=== PATIENT | male | born 1955 | race African-American/Black ===

== ENCOUNTER 2020-08-26 08:12 | Emergency (ER) | payer OTHER ==
[2020-08-26 08:21] VITALS: BP 137/81; PULSE 103; TEMP 98.4; BMI 22.4
--- NOTE | 2020-08-26 09:03 | PDOC ---
History of Present Illness - General Chief Complaint: Shortness of Breath Stated Complaint: ASTHMA - History of Present Illness Initial Comments: 65 YOM h/o COPD presents with SOB since two days. Patient reports SOB with ambulating. Was dxd with pnemonia in february, stayed in hospital for 2 weeks, treated and dcd. Has been fine since onset of current sx. Denies CP, fever, chills, n/v/d, recent sick contacts or travel. Constitutional: No Weight Change, No Fever, No Chills, No Night Sweats, No Fatigue, No Malaise ENT/Mouth: No Hearing Changes, No Ear Pain, No Nasal Congestion, No Sinus Pain, No Hoarseness, No sore throat, No Rhinorrhea, No Swallowing Difficulty Eyes: No Eye Pain, No Swelling, No Redness, No Foreign Body, No Discharge, No Vision Changes Cardiovascular: No Chest Pain, + SOB, No PND, No Dyspnea on Exertion, No Orthopnea, No Claudication, No Edema, No Palpitations Respiratory: No Cough, No Sputum, No Wheezing, No Smoke Exposure, No Dyspnea Gastrointestinal: No Nausea, No Vomiting, No Diarrhea, No Constipation, No Pain, No Heartburn, No Anorexia, No Dysphagia, No Hematochezia, No Melena, No Flatulence, No Jaundice Genitourinary: No Dysmenorrhea, No DUB, No Dyspareunia, No Dysuria, No Urinary Frequency, No Hematuria, No Urinary Incontinence, No Urgency, No Flank Pain, No Urinary Flow Changes, No Hesitancy Musculoskeletal: No Arthralgias, No Myalgias, No Joint Swelling, No Joint Stiffness, No Back Pain, No Neck Pain, No Injury History Skin: No Skin Lesions, No Pruritis, No Hair Changes, No Breast/Skin Changes, No Nipple Discharge Neuro: No Weakness, No Numbness, No Paresthesias, No Loss of Consciousness, No Syncope, No Dizziness, No Headache, No Coordination Changes, No Recent Falls Psych: No Anxiety/Panic, No Depression, No Insomnia, No Personality Changes, No Delusions, No Rumination, No SI/HI/AH/VH, No Social Issues, No Memory Changes, No Violence/Abuse Hx., No Eating Concerns Heme/Lymph: No Bruising, No Bleeding, No Transfusions History, No Lymphadenopathy Endocrine: No Polyuria, No Polydipsia, No Temperature Intolerance Past History - Medical History Allergies/Adverse Reactions: Allergies Allergy/AdvReac Type Severity Reaction Status Date / Time No Known Allergies Allergy Verified 08/26/20 08:15 Home Medications: Ambulatory Orders Azithromycin [Zithromax Tri-Alex (3 DAYS) -] 500 mg PO DAILY #3 tablet 08/26/20 predniSONE [Deltasone -] 40 mg PO UTDICT 4 Days #4 tablet 08/26/20 Asthma: Yes COPD: No HTN: Yes - Psycho-Social/Smoking History Smoking History: Current every day smoker Number of Cigarettes Smoked Daily: 4 Information on smoking cessation initiated: Yes - Substance Abuse Hx (Audit-C & DAST Scrn) How often the patient has a drink containing alcohol: Never Score: In Men: 4 or > Positive; In Women: 3 or > Positive: 0 Screen Result (Pos requires Nsg. Audit-10AR): Negative In the last yr the pt used illegal drug/Rx for NonMed reason: No Score: Yes response is considered Positive: 0 Screen Result (Positive result requires Nsg. DAST-10): Negative *Physical Exam - Vital Signs Last Vital Signs Temp Pulse Resp BP Pulse Ox 98.4 F 103 H 24 H 137/81 100 08/26/20 08:15 08/26/20 08:15 08/26/20 08:15 08/26/20 08:15 08/26/20 08:15 - Physical Exam General Appearance: Yes: Nourished, Appropriately Dressed HEENT: positive: EOMI, CHRISTINE, Normal ENT Inspection, Normal Voice, Symmetrical, TMs Normal, Pharynx Normal Neck: positive: Trachea midline, Normal Thyroid Respiratory/Chest: positive: Wheezing Cardiovascular: positive: Regular Rhythm, Regular Rate, S1, S2, Tachycardia Gastrointestinal/Abdominal: positive: Normal Bowel Sounds, Flat, Soft ED Treatment Course - LABORATORY CBC & Chemistry Diagram: 08/26/20 09:45 08/26/20 09:45 Medical Decision Making - Medical Decision Making 65 YOM h/o copd with SOB - vitals wnl - exam + for wheeze - cbc, cmp, cxr, ekg, solumedrol, dunoneb reassess: labs and imaging unremarkable ekg shows normal sinus rythm and rate patient feeling better after duoneb, will dc with rx for zpack and prednisone 08/26/20 11:23 Discharge - Discharge Information Problems reviewed: Yes Clinical Impression/Diagnosis: COPD (chronic obstructive pulmonary disease) Condition: Good Disposition: HOME - Admission No - Additional Discharge Information Prescriptions: predniSONE [Deltasone -] 40 mg PO UTDICT 4 Days #4 tablet Azithromycin [Zithromax Tri-Alex (3 DAYS) -] 500 mg PO DAILY #3 tablet - Follow up/Referral Referrals: Franc Andrew MD [Primary Care Provider] - - Patient Discharge Instructions Patient Printed Discharge Instructions: Chronic Obstructive Pulmonary Disease Additional Instructions: You were seen in the ER for shortness of breath and trouble breathing. You received a breathing treatment, steroids, labs and imaging. Your labs and imaging were unremarkable, you reported feeling better after receiving medications. You were considered medically stable and safe to return home. Upon leaving the ER please sisal picker your medications which include prednisone and azithromycin from [facility] which is on the same floor as the emergency department. When you return home try to avoid smoking, strenuous activity, cold weather or air. Take your home medications as prescribed. Please follow up with your primary care provider regarding your visit to the emergency department. If you experience worsening shortness of breath, chest pain, fever, chills, vomiting, change in mental status please return to the ER immediately. - Post Discharge Activity
[2020-08-26] MEDS ORDERED: methylPREDNISolone NA SUCC 125 MG/2 ML VIAL IVPUSH ONE (09:05)
[2020-08-26] MEDS ORDERED: methylPREDNISolone NA SUCC 125 MG/2 ML VIAL ONE (09:13)
[2020-08-26] MEDS ORDERED: ALBUTEROL SO4 2.5/IPRATROPIUM 0.5 INH SOL 3 ML VIAL.NEB. NEB ONE ×3 (09:18→10:53)
[2020-08-26 10:02] LABS: BASO % 0.5 % (0-2.0); EOS % 13.3 % (0-4.5); HEMATOCRIT 41.5 % (35.4-49); HEMOGLOBIN 13.5 GM/dL (11.7-16.9); LYMPH % 20.5 % (8-40); MCH 29.2 pg (25.7-33.7); MCHC 32.5 g/dl (32.0-35.9); MEAN CELL VOLUME 89.9 fl (80-96); MEAN PLT VOLUME 7.8 fl (7.5-11.1); MONO % 7.4 % (3.8-10.2); NEUT % 58.3 % (42.8-82.8); PLATELET COUNT 214 K/MM3 (134-434); RBC 4.62 M/mm3 (4.00-5.60); RDW 14.9 % (11.9-15.9); WHITE BLOOD COUNT 4.5 K/mm3 (4.0-10.0)
[2020-08-26 10:12] LABS: INR 1.06 (0.83-1.09); PROTHROMBIN TIME (PATIENT) 12.5 SEC (9.7-13.0)
[2020-08-26 10:16] LABS: ACTIVATED PTT 30.3 SECONDS (25.2-36.5)
[2020-08-26 10:33] LABS: ALBUMIN 3.7 g/dl (3.4-5.0); ALK PHOS 80 U/L (45-117); ANION GAP 5 MMOL/L (8-16); BILIRUBIN,TOTAL 0.7 mg/dL (0.2-1); BLOOD UREA NITROGEN 10.8 mg/dL (7-18); CALCIUM 8.9 mg/dL (8.5-10.1); CHLORIDE 102 mmol/L (98-107); CO2 31 mmol/L (21-32); CREATININE 0.9 mg/dL (0.55-1.3); GLUCOSE,RANDOM 98 mg/dL (74-106); POTASSIUM 3.5 mmol/L (3.5-5.1); SGOT/AST 11 U/L (15-37); SGPT/ALT 14 U/L (13-61); SODIUM 139 mmol/L (136-145); TOT PROT 7.2 g/dl (6.4-8.2)
--- NOTE | 2020-08-26 11:17 | PDOC ---
Documentation entered by Austin Briggs SCRIBE, acting as scribe for Gibran Bhatt MD. Gibran Bhatt MD: This documentation has been prepared by the anabelibeChester Alexis, SCRIBE, under my direction and personally reviewed by me in its entirety. I confirm that the documentation accurately reflects all work, treatment, procedures, and medical decision making performed by me. Attending Attestation - Resident Resident Name: ErvinKirk - ED Attending Attestation I have performed the following: I have examined & evaluated the patient, The case was reviewed & discussed with the resident, I agree w/resident's findings & plan, Exceptions are as noted - HPI HPI: 08/26/20 09:54 The patient is a 65 year old male with a significant past medical history of asthma, COPD, HTN who presents to the emergency department for evaluation of shortness of breath that began two days ago. The patient reports dyspnea on exertion and wheezing. The patient was last admitted with pneumonia in February. He endorses his niece is currently sick. Denies travel. The patient denies chest/abdominal/back pain, cough, fever, chills, nausea, vomiting, and/or any GI symptoms. Denies any symptoms. Denies any other symptoms. Allergies: NKA Social Hx: The patient reports he currently smokes 4 cigarettes per day. Denies alcohol consumption or illicit drug use. - Physicial Exam PE: 08/26/20 09:54 Vitals: Triage vital signs reviewed General Appearance: No acute distress, well nourished, well developed Head: Atraumatic Cardiac: Regular rate and rhythm, no murmurs, no rubs, no gallops Lungs: Clear to auscultation bilateral, good air movement bilaterally Abdomen: Soft, nondistended, normal bowel sounds, nontender to palpation Extremities: Full range of motion to all extremities, no cyanosis, clubbing, or edema Skin: Warm and dry, no rashes or lesions, no rash, no petechiae - Medical Decision Making 08/26/20 11:17 65 years old with past medical history significant for COPD presents the ED with COPD exacerbation. Upon my examination patient had already received 2 duo nebs and feels much better no wheezing noted at time of examination EKG demonstrates normal sinus rhythm no ST elevations no T wave inversions We will discharge home with short course of steroids azithromycin and PCP follow-up Findings, the need for follow-up, strict return instructions discussed with patient. 08/26/20 15:46 Prior to receiving discharge paper patient had left ED several attempts to contact patient on phone Bridger GUPTA called as patient may have IV in Discharge - Discharge Information Problems reviewed: Yes Clinical Impression/Diagnosis: COPD (chronic obstructive pulmonary disease) Qualifiers: COPD type: unspecified COPD Qualified Code(s): J44.9 - Chronic obstructive pulmonary disease, unspecified Condition: Good Disposition: HOME - Additional Discharge Information Prescriptions: predniSONE [Deltasone -] 40 mg PO UTDICT 4 Days #4 tablet Azithromycin [Zithromax Tri-Alex (3 DAYS) -] 500 mg PO DAILY #3 tablet - Follow up/Referral Referrals: Franc Andrew MD [Primary Care Provider] - - Patient Discharge Instructions Patient Printed Discharge Instructions: Chronic Obstructive Pulmonary Disease Additional Instructions: You were seen in the ER for shortness of breath and trouble breathing. You received a breathing treatment, steroids, labs and imaging. Your labs and imaging were unremarkable, you reported feeling better after receiving medications. You were considered medically stable and safe to return home. Upon leaving the ER please cloth picker your medications which include prednisone and azithromycin from [facility] which is on the same floor as the emergency department. When you return home try to avoid smoking, strenuous activity, cold weather or air. Take your home medications as prescribed. Please follow up with your primary care provider regarding your visit to the emergency department. If you experience worsening shortness of breath, chest pain, fever, chills, vomiting, change in mental status please return to the ER immediately. - Post Discharge Activity
--- NOTE | 2020-08-26 17:00 | EKG ---
Test Reason : Blood Pressure : / mmHG Vent. Rate : 090 BPM Atrial Rate : 090 BPM P-R Int : 148 ms QRS Dur : 080 ms QT Int : 362 ms P-R-T Axes : 078 062 069 degrees QTc Int : 442 ms NORMAL SINUS RHYTHM POSSIBLE LEFT ATRIAL ENLARGEMENT BORDERLINE ECG NO PREVIOUS ECGS AVAILABLE Confirmed by ADELINA SKINNER, BETHANY ([id number]) on 08/26/2020 4:59:51 PM Referred By: Confirmed By:BETHANY SAHU MD
== END 2020-08-26 14:29 | disposition left against medical advice (07) ==
LOC: JER 08:12
PROC: 3E0F7GC Introduction of Other Therapeutic Substance into Respiratory Tract, Via Natural or Artificial Opening (ICD-10-PCS; principal; 2020-08-26)
PROC: 3E033GC Introduction of Other Therapeutic Substance into Peripheral Vein, Percutaneous Approach (ICD-10-PCS; 2020-08-26)
DX: J44.9 Chronic obstructive pulmonary disease, unspecified (principal)
CPT/HCPCS: 36415; 71046-TC-FY; 80053; 82550; 82553; 83880; 84484; 85025; 85610; 85730; 93005; 93010; 99285-25

== ENCOUNTER 2023-05-10 16:02 | Inpatient (IN) | payer OTHER ==
[2023-05-10 16:19] VITALS: BMI 20.5
[2023-05-10] MEDS ORDERED: MAGNESIUM SULF 50% (8.12 MEQ/2 ML-1 GM VIAL) IVPB ONE (16:20)
[2023-05-10] MEDS ORDERED: ALBUTEROL SO4 2.5/IPRATROPIUM 0.5 INH SOL 3 ML VIAL.NEB. NEB ONE ×3 (16:40→20:46)
[2023-05-10] MEDS ORDERED: CEFTRIAXONE 1,000 MG in DEXTROSE 5%-WATER - 50 ML IVPB ONE (16:41)
[2023-05-10] MEDS ORDERED: CEFTRIAXONE 1 GM/50 ML BAG ONE (16:54)
[2023-05-10] MEDS ORDERED: MAGNESIUM SULFATE IN WATER 2 GM/50 ML IVPB IVPB ONE (16:55)
[2023-05-10 16:56] LABS: VENOUS BASE EXCESS 7.3 mmol/L (-2-2); VENOUS O2 SATURATION 97.1 % (70-80); VENOUS PCO2 47.3 mmHg (38-52); VENOUS PH 7.455 (7.310-7.410)
[2023-05-10] MEDS ORDERED: NALOXONE HCL 0.4 MG/ML VIAL IVPUSH ONE (16:58)
[2023-05-10 16:59] LABS: BASO % 0.4 % (0-2.0); EOS % 2.9 % (0-4.5); HEMATOCRIT 44.9 % (35.4-49); HEMOGLOBIN 14.6 GM/dL (11.7-16.9); LYMPH % 10.4 % (8-40); MCH 30.5 pg (25.7-33.7); MCHC 32.5 g/dl (32.0-35.9); MEAN PLT VOLUME 7.6 fl (7.5-11.1); NEUT % 79.3 % (42.8-82.8); PLATELET COUNT 177 10^3/uL (134-434); RBC 4.78 M/mm3 (4.00-5.60); RDW 16.7 % (11.9-15.9); WHITE BLOOD COUNT 4.6 K/mm3 (4.0-10.0)
[2023-05-10] MEDS ORDERED: NALOXONE HCL 0.4 MG/ML VIAL ONE (16:59)
[2023-05-10 17:21] LABS: POTASSIUM 3.4 mmol/L (3.5-5.1)
[2023-05-10 17:23] LABS: ALBUMIN 3.7 g/dl (3.4-5.0); CALCIUM 9.1 mg/dL (8.5-10.1)
[2023-05-10 17:24] LABS: BLOOD UREA NITROGEN 13.8 mg/dL (7-18)
[2023-05-10 17:26] LABS: CREATININE 0.7 mg/dL (0.55-1.3)
[2023-05-10 17:28] LABS: BILIRUBIN,TOTAL 0.9 mg/dL (0.2-1); TOT PROT 7.1 g/dl (6.4-8.2)
[2023-05-10] MEDS ORDERED: ALBUTEROL SULFATE 0.021% (0.63 MG/3 ML) VIAL.NEB NEB ONE (18:42)
[2023-05-10] MEDS ORDERED: ALBUTEROL SO4 0.083% IH SOL 2.5 MG/3 ML VIAL.NEB. NEB ONE (18:44)
[2023-05-10] MEDS: ALBUTEROL SO4 2.5/IPRATROPIUM 0.5 INH SOL 3 ML VIAL.NEB. NEB SCH (20:30)
[2023-05-10] MEDS: BUDESONIDE/FORMETEROL FUMARATE 160/4.5 mcg INHALER IH SCH (23:29)
[2023-05-10] MEDS: HEPARIN NA (PORCINE) 5,000 UNITS/ML 1ML VIAL SQ SCH (23:29)
[2023-05-11] MEDS: ALBUTEROL SO4 2.5/IPRATROPIUM 0.5 INH SOL 3 ML VIAL.NEB. NEB SCH ×7 (00:23→23:03)
[2023-05-11] MEDS: methylPREDNISolone NA SUCC 40 MG/1 ML VIAL IVPUSH SCH ×3 (01:12→18:07)
[2023-05-11 07:42] LABS: BASO % 0.1 % (0-2.0); HEMATOCRIT 42.9 % (35.4-49); LYMPH % 7.7 % (8-40); MCH 31.4 pg (25.7-33.7); MCHC 32.7 g/dl (32.0-35.9); MEAN CELL VOLUME 96.1 fl (80-96); MEAN PLT VOLUME 7.4 fl (7.5-11.1); MONO % 2.8 % (3.8-10.2); NEUT % 89.4 % (42.8-82.8); PLATELET COUNT 159 10^3/uL (134-434); RBC 4.46 M/mm3 (4.00-5.60); RDW 16.1 % (11.9-15.9); WHITE BLOOD COUNT 3.1 K/mm3 (4.0-10.0)
[2023-05-11 08:01] LABS: POTASSIUM 4.9 mmol/L (3.5-5.1)
[2023-05-11 08:06] LABS: BLOOD UREA NITROGEN 14.8 mg/dL (7-18)
[2023-05-11 08:10] LABS: CREATININE 0.7 mg/dL (0.55-1.3)
[2023-05-11] MEDS: HEPARIN NA (PORCINE) 5,000 UNITS/ML 1ML VIAL SQ SCH ×2 (09:52→23:07)
[2023-05-11] MEDS: amLODIPine BESYLATE 10 MG TABLET (FP) PO SCH (09:52)
[2023-05-11] MEDS: LOSARTAN 50MG/HCTZ 12.5MG 1 TAB PO SCH (09:55)
[2023-05-11] MEDS ORDERED: REMDESIVIR 200 MG in SODIUM CHLORIDE 250 ML IVPB ONE (12:00)
[2023-05-11] MEDS: BUDESONIDE/FORMETEROL FUMARATE 160/4.5 mcg INHALER IH SCH ×2 (14:17→23:00)
[2023-05-12] MEDS: methylPREDNISolone NA SUCC 40 MG/1 ML VIAL IVPUSH SCH ×3 (01:34→17:30)
[2023-05-12] MEDS: ALBUTEROL SO4 2.5/IPRATROPIUM 0.5 INH SOL 3 ML VIAL.NEB. NEB SCH ×6 (04:59→23:01)
[2023-05-12] MEDS: HEPARIN NA (PORCINE) 5,000 UNITS/ML 1ML VIAL SQ SCH ×3 (05:51→22:16)
[2023-05-12 09:15] LABS: HEMATOCRIT 45.3 % (35.4-49); HEMOGLOBIN 14.8 GM/dL (11.7-16.9); LYMPH % 7.1 % (8-40); MCH 30.6 pg (25.7-33.7); MCHC 32.6 g/dl (32.0-35.9); MEAN CELL VOLUME 93.7 fl (80-96); MEAN PLT VOLUME 7.9 fl (7.5-11.1); MONO % 4.5 % (3.8-10.2); NEUT % 88.4 % (42.8-82.8); PLATELET COUNT 162 10^3/uL (134-434); RBC 4.83 M/mm3 (4.00-5.60); RDW 16.1 % (11.9-15.9); WHITE BLOOD COUNT 4.4 K/mm3 (4.0-10.0)
[2023-05-12 09:19] LABS: POTASSIUM 4.2 mmol/L (3.5-5.1)
[2023-05-12 09:22] LABS: ALBUMIN 3.4 g/dl (3.4-5.0); BLOOD UREA NITROGEN 17.5 mg/dL (7-18)
[2023-05-12 09:23] LABS: MAGNESIUM 2.4 mg/dL (1.8-2.4)
[2023-05-12 09:25] LABS: CREATININE 0.8 mg/dL (0.55-1.3); PHOSPHOROUS 3.5 mg/dL (2.5-4.9)
[2023-05-12 09:27] LABS: BILIRUBIN,TOTAL 0.6 mg/dL (0.2-1); TOT PROT 6.6 g/dl (6.4-8.2)
[2023-05-12] MEDS: amLODIPine BESYLATE 10 MG TABLET (FP) PO SCH (09:29)
[2023-05-12] MEDS: LOSARTAN 50MG/HCTZ 12.5MG 1 TAB PO SCH (09:30)
[2023-05-12] MEDS: BUDESONIDE/FORMETEROL FUMARATE 160/4.5 mcg INHALER IH SCH ×2 (10:49→22:16)
[2023-05-12] MEDS: PANTOPRAZOLE 40 MG TABLET PO SCH (18:32)
[2023-05-12] MEDS ORDERED: methaDONE HCL 10 MG TABLET PO ONE ×2 (19:00→22:00)
[2023-05-13] MEDS: methylPREDNISolone NA SUCC 40 MG/1 ML VIAL IVPUSH SCH ×3 (01:11→17:25)
[2023-05-13] MEDS: ALBUTEROL SO4 2.5/IPRATROPIUM 0.5 INH SOL 3 ML VIAL.NEB. NEB SCH ×5 (04:45→20:20)
[2023-05-13] MEDS: HEPARIN NA (PORCINE) 5,000 UNITS/ML 1ML VIAL SQ SCH ×3 (05:21→22:34)
[2023-05-13 07:11] LABS: HEMATOCRIT 45.5 % (35.4-49); HEMOGLOBIN 14.5 GM/dL (11.7-16.9); MCH 30.2 pg (25.7-33.7); MCHC 31.8 g/dl (32.0-35.9); MEAN CELL VOLUME 95.2 fl (80-96); MEAN PLT VOLUME 7.9 fl (7.5-11.1); PLATELET COUNT 161 10^3/uL (134-434); RBC 4.78 M/mm3 (4.00-5.60); WHITE BLOOD COUNT 4.2 K/mm3 (4.0-10.0)
[2023-05-13 07:34] LABS: POTASSIUM 4.5 mmol/L (3.5-5.1)
[2023-05-13 07:38] LABS: ALBUMIN 3.3 g/dl (3.4-5.0)
[2023-05-13 07:39] LABS: CALCIUM 8.9 mg/dL (8.5-10.1); MAGNESIUM 2.4 mg/dL (1.8-2.4)
[2023-05-13 07:41] LABS: PHOSPHOROUS 3.7 mg/dL (2.5-4.9)
[2023-05-13 07:42] LABS: CREATININE 0.8 mg/dL (0.55-1.3)
[2023-05-13 07:43] LABS: TOT PROT 6.3 g/dl (6.4-8.2)
[2023-05-13 08:59] LABS: ANISOCYTOSIS 1+; MACROCYTOSIS 0
[2023-05-13] MEDS: LOSARTAN 50MG/HCTZ 12.5MG 1 TAB PO SCH (10:37)
[2023-05-13] MEDS: amLODIPine BESYLATE 10 MG TABLET (FP) PO SCH (10:37)
[2023-05-13] MEDS: PANTOPRAZOLE 40 MG TABLET PO SCH (10:38)
[2023-05-13] MEDS: BUDESONIDE/FORMETEROL FUMARATE 160/4.5 mcg INHALER IH SCH ×2 (10:39→22:36)
[2023-05-14] MEDS: methylPREDNISolone NA SUCC 40 MG/1 ML VIAL IVPUSH SCH ×2 (02:11→09:25)
[2023-05-14] MEDS: ALBUTEROL SO4 2.5/IPRATROPIUM 0.5 INH SOL 3 ML VIAL.NEB. NEB SCH ×7 (04:22→23:40)
[2023-05-14] MEDS: HEPARIN NA (PORCINE) 5,000 UNITS/ML 1ML VIAL SQ SCH ×3 (06:15→22:51)
[2023-05-14 07:40] LABS: BASO % 0.1 % (0-2.0); HEMATOCRIT 45.9 % (35.4-49); HEMOGLOBIN 14.7 GM/dL (11.7-16.9); LYMPH % 4.9 % (8-40); MCH 30.2 pg (25.7-33.7); MCHC 31.9 g/dl (32.0-35.9); MEAN CELL VOLUME 94.5 fl (80-96); MEAN PLT VOLUME 8.1 fl (7.5-11.1); MONO % 3.7 % (3.8-10.2); NEUT % 91.3 % (42.8-82.8); PLATELET COUNT 145 10^3/uL (134-434); RBC 4.85 M/mm3 (4.00-5.60); WHITE BLOOD COUNT 4.9 K/mm3 (4.0-10.0)
[2023-05-14 08:06] LABS: POTASSIUM 5.3 mmol/L (3.5-5.1)
[2023-05-14 08:11] LABS: ALBUMIN 3.2 g/dl (3.4-5.0); BLOOD UREA NITROGEN 21.9 mg/dL (7-18); CALCIUM 8.8 mg/dL (8.5-10.1)
[2023-05-14 08:14] LABS: CREATININE 0.7 mg/dL (0.55-1.3)
[2023-05-14 08:15] LABS: TOT PROT 6.6 g/dl (6.4-8.2)
[2023-05-14 09:07] LABS: ANISOCYTOSIS 1+; MACROCYTOSIS 0
[2023-05-14] MEDS: PANTOPRAZOLE 40 MG TABLET PO SCH (09:25)
[2023-05-14] MEDS: amLODIPine BESYLATE 10 MG TABLET (FP) PO SCH (09:25)
[2023-05-14] MEDS: LOSARTAN 50MG/HCTZ 12.5MG 1 TAB PO SCH (09:26)
[2023-05-14] MEDS ORDERED: methaDONE HCL 10 MG TABLET (FOR DETOX USE ONLY) PO SCH (10:00)
[2023-05-14] MEDS: BUDESONIDE/FORMETEROL FUMARATE 160/4.5 mcg INHALER IH SCH ×2 (10:42→22:51)
[2023-05-15] MEDS: ALBUTEROL SO4 2.5/IPRATROPIUM 0.5 INH SOL 3 ML VIAL.NEB. NEB SCH ×4 (04:25→15:09)
[2023-05-15] MEDS: HEPARIN NA (PORCINE) 5,000 UNITS/ML 1ML VIAL SQ SCH ×3 (06:44→22:39)
[2023-05-15 07:20] LABS: BASO % 0.1 % (0-2.0); HEMOGLOBIN 14.5 GM/dL (11.7-16.9); LYMPH % 20.5 % (8-40); MCH 30.8 pg (25.7-33.7); MCHC 32.3 g/dl (32.0-35.9); MEAN CELL VOLUME 95.3 fl (80-96); MEAN PLT VOLUME 8.5 fl (7.5-11.1); MONO % 9.1 % (3.8-10.2); NEUT % 70.3 % (42.8-82.8); PLATELET COUNT 142 10^3/uL (134-434); RBC 4.72 M/mm3 (4.00-5.60); RDW 16.1 % (11.9-15.9); WHITE BLOOD COUNT 5.2 K/mm3 (4.0-10.0)
[2023-05-15 07:37] LABS: POTASSIUM 3.6 mmol/L (3.5-5.1)
[2023-05-15 07:40] LABS: CALCIUM 8.8 mg/dL (8.5-10.1)
[2023-05-15 07:41] LABS: BLOOD UREA NITROGEN 20.9 mg/dL (7-18)
[2023-05-15 07:44] LABS: CREATININE 0.8 mg/dL (0.55-1.3)
[2023-05-15] MEDS: predniSONE 20 MG TABLET (UD) PO SCH (10:00)
[2023-05-15] MEDS: amLODIPine BESYLATE 10 MG TABLET (FP) PO SCH (10:00)
[2023-05-15] MEDS: PANTOPRAZOLE 40 MG TABLET PO SCH (10:00)
[2023-05-15] MEDS: BUDESONIDE/FORMETEROL FUMARATE 160/4.5 mcg INHALER IH SCH ×2 (10:03→22:40)
[2023-05-15] MEDS: LOSARTAN 50MG/HCTZ 12.5MG 1 TAB PO SCH (10:07)
[2023-05-16] MEDS: HEPARIN NA (PORCINE) 5,000 UNITS/ML 1ML VIAL SQ SCH ×3 (05:30→21:28)
[2023-05-16] MEDS: predniSONE 20 MG TABLET (UD) PO SCH (09:48)
[2023-05-16] MEDS: amLODIPine BESYLATE 10 MG TABLET (FP) PO SCH (09:48)
[2023-05-16] MEDS: PANTOPRAZOLE 40 MG TABLET PO SCH (09:48)
[2023-05-16] MEDS: LOSARTAN 50MG/HCTZ 12.5MG 1 TAB PO SCH (09:49)
[2023-05-16] MEDS: BUDESONIDE/FORMETEROL FUMARATE 160/4.5 mcg INHALER IH SCH ×2 (09:50→21:28)
[2023-05-16] MEDS ORDERED: ALBUTEROL SO4 2.5/IPRATROPIUM 0.5 INH SOL 3 ML VIAL.NEB. NEB PRN (13:12)
[2023-05-17] MEDS: HEPARIN NA (PORCINE) 5,000 UNITS/ML 1ML VIAL SQ SCH ×3 (06:21→22:23)
[2023-05-17 07:58] LABS: HEMATOCRIT 46.6 % (35.4-49); HEMOGLOBIN 15.1 GM/dL (11.7-16.9); MCH 30.2 pg (25.7-33.7); MCHC 32.3 g/dl (32.0-35.9); MEAN CELL VOLUME 93.5 fl (80-96); MEAN PLT VOLUME 8.2 fl (7.5-11.1); PLATELET COUNT 124 10^3/uL (134-434); RBC 4.98 M/mm3 (4.00-5.60); RDW 16.1 % (11.9-15.9); WHITE BLOOD COUNT 4.2 K/mm3 (4.0-10.0)
[2023-05-17 08:21] LABS: POTASSIUM 3.6 mmol/L (3.5-5.1)
[2023-05-17 08:24] LABS: BLOOD UREA NITROGEN 17.2 mg/dL (7-18); MAGNESIUM 2.3 mg/dL (1.8-2.4)
[2023-05-17 08:27] LABS: CREATININE 0.8 mg/dL (0.55-1.3)
[2023-05-17] MEDS: predniSONE 20 MG TABLET (UD) PO SCH (09:26)
[2023-05-17] MEDS: amLODIPine BESYLATE 10 MG TABLET (FP) PO SCH (09:26)
[2023-05-17] MEDS: LOSARTAN 50MG/HCTZ 12.5MG 1 TAB PO SCH (09:26)
[2023-05-17] MEDS: PANTOPRAZOLE 40 MG TABLET PO SCH (09:26)
[2023-05-17] MEDS: BUDESONIDE/FORMETEROL FUMARATE 160/4.5 mcg INHALER IH SCH ×2 (09:26→22:22)
[2023-05-17] MEDS ORDERED: ZINC OXIDE/PETROLATUM,WHITE 1 APPLIC OINT...G. TP PRN ×2 (20:53→21:30)
[2023-05-18] MEDS: HEPARIN NA (PORCINE) 5,000 UNITS/ML 1ML VIAL SQ SCH (06:20)
[2023-05-18 08:09] LABS: CHLORIDE 99 mmol/L (98-107); POTASSIUM 3.7 mmol/L (3.5-5.1); SODIUM 142 mmol/L (136-145)
[2023-05-18 08:10] LABS: CALCIUM 9.1 mg/dL (8.5-10.1)
[2023-05-18 08:11] LABS: ANION GAP 5 MMOL/L (8-16); BLOOD UREA NITROGEN 18.8 mg/dL (7-18); CO2 39 mmol/L (21-32); GLUCOSE,RANDOM 86 mg/dL (74-106)
[2023-05-18 08:13] LABS: CREATININE 0.7 mg/dL (0.55-1.3)
[2023-05-18] MEDS: predniSONE 20 MG TABLET (UD) PO SCH (10:57)
[2023-05-18] MEDS: BUDESONIDE/FORMETEROL FUMARATE 160/4.5 mcg INHALER IH SCH ×2 (10:58→21:40)
[2023-05-18] MEDS: LOSARTAN 50MG/HCTZ 12.5MG 1 TAB PO SCH (10:58)
[2023-05-18] MEDS: amLODIPine BESYLATE 10 MG TABLET (FP) PO SCH (10:58)
[2023-05-18] MEDS: ENOXAPARIN NA (PORCINE) 40 MG/0.4 ML DISP.SYRIN SQ SCH (11:00)
[2023-05-18] MEDS: PANTOPRAZOLE 40 MG TABLET PO SCH (11:00)
[2023-05-18] MEDS ORDERED: LOSARTAN POTASSIUM 50 MG TABLET PO ONE (19:37)
[2023-05-19 08:06] LABS: ALBUMIN 2.9 g/dl (3.4-5.0); BLOOD UREA NITROGEN 17.8 mg/dL (7-18); CALCIUM 8.6 mg/dL (8.5-10.1)
[2023-05-19 08:10] LABS: CREATININE 0.8 mg/dL (0.55-1.3)
[2023-05-19 08:12] LABS: BILIRUBIN,TOTAL 0.9 mg/dL (0.2-1); TOT PROT 5.8 g/dl (6.4-8.2)
[2023-05-19] MEDS: LOSARTAN POTASSIUM 50 MG TABLET PO SCH (09:45)
[2023-05-19] MEDS: PANTOPRAZOLE 40 MG TABLET PO SCH (09:45)
[2023-05-19] MEDS: amLODIPine BESYLATE 10 MG TABLET (FP) PO SCH (09:45)
[2023-05-19] MEDS: predniSONE 20 MG TABLET (UD) PO SCH (09:45)
[2023-05-19] MEDS: ENOXAPARIN NA (PORCINE) 40 MG/0.4 ML DISP.SYRIN SQ SCH (09:46)
[2023-05-19] MEDS: BUDESONIDE/FORMETEROL FUMARATE 160/4.5 mcg INHALER IH SCH ×2 (09:47→21:10)
[2023-05-20 07:29] LABS: BASO % 0.5 % (0-2.0); EOS % 1.5 % (0-4.5); HEMATOCRIT 44.6 % (35.4-49); HEMOGLOBIN 14.8 GM/dL (11.7-16.9); LYMPH % 34.4 % (8-40); MCH 30.9 pg (25.7-33.7); MCHC 33.2 g/dl (32.0-35.9); MEAN PLT VOLUME 7.4 fl (7.5-11.1); NEUT % 51.6 % (42.8-82.8); PLATELET COUNT 117 10^3/uL (134-434); RDW 15.6 % (11.9-15.9); WHITE BLOOD COUNT 4.9 K/mm3 (4.0-10.0)
[2023-05-20 07:52] LABS: POTASSIUM 4.2 mmol/L (3.5-5.1)
[2023-05-20 08:09] LABS: BLOOD UREA NITROGEN 19.4 mg/dL (7-18); MAGNESIUM 2.3 mg/dL (1.8-2.4)
[2023-05-20 08:12] LABS: CREATININE 0.8 mg/dL (0.55-1.3)
[2023-05-20 08:13] LABS: BILIRUBIN,TOTAL 0.8 mg/dL (0.2-1)
[2023-05-20] MEDS: predniSONE 20 MG TABLET (UD) PO SCH (09:14)
[2023-05-20] MEDS: PANTOPRAZOLE 40 MG TABLET PO SCH (09:14)
[2023-05-20] MEDS: ENOXAPARIN NA (PORCINE) 40 MG/0.4 ML DISP.SYRIN SQ SCH (09:14)
[2023-05-20] MEDS: amLODIPine BESYLATE 10 MG TABLET (FP) PO SCH (09:14)
[2023-05-20] MEDS: BUDESONIDE/FORMETEROL FUMARATE 160/4.5 mcg INHALER IH SCH ×2 (09:15→21:32)
[2023-05-20] MEDS: LOSARTAN POTASSIUM 50 MG TABLET PO SCH (09:24)
[2023-05-20] MEDS ORDERED: ALBUTEROL SO4 2.5/IPRATROPIUM 0.5 INH SOL 3 ML VIAL.NEB. NEB SCH ×2 (20:45)
[2023-05-21] MEDS: ALBUTEROL SO4 2.5/IPRATROPIUM 0.5 INH SOL 3 ML VIAL.NEB. NEB SCH ×4 (02:00→20:26)
[2023-05-21 06:51] LABS: BASO % 0.3 % (0-2.0); EOS % 1.3 % (0-4.5); HEMATOCRIT 42.9 % (35.4-49); HEMOGLOBIN 13.6 GM/dL (11.7-16.9); LYMPH % 34.9 % (8-40); MCH 30.1 pg (25.7-33.7); MCHC 31.6 g/dl (32.0-35.9); MEAN CELL VOLUME 95.2 fl (80-96); MEAN PLT VOLUME 9.1 fl (7.5-11.1); MONO % 11.4 % (3.8-10.2); NEUT % 52.1 % (42.8-82.8); PLATELET COUNT 128 10^3/uL (134-434); RDW 15.1 % (11.9-15.9); WHITE BLOOD COUNT 4.4 K/mm3 (4.0-10.0)
[2023-05-21 07:04] LABS: CALCIUM 9.1 mg/dL (8.5-10.1); POTASSIUM 4.1 mmol/L (3.5-5.1)
[2023-05-21 07:05] LABS: ALBUMIN 2.9 g/dl (3.4-5.0); BLOOD UREA NITROGEN 17.4 mg/dL (7-18)
[2023-05-21 07:08] LABS: CREATININE 0.9 mg/dL (0.55-1.3)
[2023-05-21 07:09] LABS: BILIRUBIN,TOTAL 0.6 mg/dL (0.2-1)
[2023-05-21 07:10] LABS: TOT PROT 5.7 g/dl (6.4-8.2)
[2023-05-21] MEDS: ENOXAPARIN NA (PORCINE) 40 MG/0.4 ML DISP.SYRIN SQ SCH (10:59)
[2023-05-21] MEDS: LOSARTAN POTASSIUM 50 MG TABLET PO SCH (10:59)
[2023-05-21] MEDS: amLODIPine BESYLATE 10 MG TABLET (FP) PO SCH (10:59)
[2023-05-21] MEDS: PANTOPRAZOLE 40 MG TABLET PO SCH (10:59)
[2023-05-21] MEDS: predniSONE 20 MG TABLET (UD) PO SCH (10:59)
[2023-05-21] MEDS: BUDESONIDE/FORMETEROL FUMARATE 160/4.5 mcg INHALER IH SCH ×2 (11:00→23:36)
[2023-05-22] MEDS: ALBUTEROL SO4 2.5/IPRATROPIUM 0.5 INH SOL 3 ML VIAL.NEB. NEB SCH ×3 (08:15→20:05)
[2023-05-22 09:17] LABS: BASO % 0.1 % (0-2.0); EOS % 0.2 % (0-4.5); HEMATOCRIT 43.1 % (35.4-49); HEMOGLOBIN 13.7 GM/dL (11.7-16.9); LYMPH % 31.4 % (8-40); MCH 30.2 pg (25.7-33.7); MCHC 31.7 g/dl (32.0-35.9); MEAN CELL VOLUME 95.3 fl (80-96); MEAN PLT VOLUME 9.4 fl (7.5-11.1); MONO % 9.7 % (3.8-10.2); NEUT % 58.6 % (42.8-82.8); PLATELET COUNT 138 10^3/uL (134-434); RBC 4.52 M/mm3 (4.00-5.60); RDW 15.2 % (11.9-15.9)
[2023-05-22] MEDS: predniSONE 20 MG TABLET (UD) PO SCH (09:22)
[2023-05-22] MEDS: ENOXAPARIN NA (PORCINE) 40 MG/0.4 ML DISP.SYRIN SQ SCH (09:22)
[2023-05-22] MEDS: LOSARTAN POTASSIUM 50 MG TABLET PO SCH (09:22)
[2023-05-22] MEDS: PANTOPRAZOLE 40 MG TABLET PO SCH (09:24)
[2023-05-22] MEDS: amLODIPine BESYLATE 10 MG TABLET (FP) PO SCH (09:24)
[2023-05-22 09:27] LABS: POTASSIUM 3.9 mmol/L (3.5-5.1)
[2023-05-22 09:33] LABS: ALBUMIN 3.1 g/dl (3.4-5.0); BLOOD UREA NITROGEN 15.8 mg/dL (7-18)
[2023-05-22 09:35] LABS: CALCIUM 9.1 mg/dL (8.5-10.1); CREATININE 0.8 mg/dL (0.55-1.3)
[2023-05-22 09:37] LABS: BILIRUBIN,TOTAL 0.8 mg/dL (0.2-1)
[2023-05-22] MEDS: BUDESONIDE/FORMETEROL FUMARATE 160/4.5 mcg INHALER IH SCH ×2 (10:18→23:24)
[2023-05-22] MEDS ORDERED: INSULIN (NOVOLOG) ASPART 100 UNITS/ML 10ML VIAL ONE (17:54)
[2023-05-23] MEDS: ALBUTEROL SO4 2.5/IPRATROPIUM 0.5 INH SOL 3 ML VIAL.NEB. NEB SCH ×3 (07:51→20:11)
[2023-05-23] MEDS: predniSONE 20 MG TABLET (UD) PO SCH (09:40)
[2023-05-23] MEDS: amLODIPine BESYLATE 10 MG TABLET (FP) PO SCH (09:40)
[2023-05-23] MEDS: PANTOPRAZOLE 40 MG TABLET PO SCH (09:41)
[2023-05-23] MEDS: ENOXAPARIN NA (PORCINE) 40 MG/0.4 ML DISP.SYRIN SQ SCH (09:41)
[2023-05-23] MEDS: LOSARTAN POTASSIUM 50 MG TABLET PO SCH (09:41)
[2023-05-23] MEDS: BUDESONIDE/FORMETEROL FUMARATE 160/4.5 mcg INHALER IH SCH ×2 (09:48→22:17)
[2023-05-24] MEDS: ALBUTEROL SO4 2.5/IPRATROPIUM 0.5 INH SOL 3 ML VIAL.NEB. NEB SCH ×3 (08:50→20:28)
[2023-05-24] MEDS: predniSONE 20 MG TABLET (UD) PO SCH (10:52)
[2023-05-24] MEDS: LOSARTAN POTASSIUM 50 MG TABLET PO SCH (10:52)
[2023-05-24] MEDS: PANTOPRAZOLE 40 MG TABLET PO SCH (10:52)
[2023-05-24] MEDS: ENOXAPARIN NA (PORCINE) 40 MG/0.4 ML DISP.SYRIN SQ SCH (10:53)
[2023-05-24] MEDS: amLODIPine BESYLATE 10 MG TABLET (FP) PO SCH (10:53)
[2023-05-24] MEDS: BUDESONIDE/FORMETEROL FUMARATE 160/4.5 mcg INHALER IH SCH ×2 (11:15→21:59)
[2023-05-25] MEDS: ALBUTEROL SO4 2.5/IPRATROPIUM 0.5 INH SOL 3 ML VIAL.NEB. NEB SCH ×3 (08:14→20:16)
[2023-05-25] MEDS: ENOXAPARIN NA (PORCINE) 40 MG/0.4 ML DISP.SYRIN SQ SCH (10:47)
[2023-05-25] MEDS: amLODIPine BESYLATE 10 MG TABLET (FP) PO SCH (10:47)
[2023-05-25] MEDS: PANTOPRAZOLE 40 MG TABLET PO SCH (10:47)
[2023-05-25] MEDS: LOSARTAN POTASSIUM 50 MG TABLET PO SCH (10:47)
[2023-05-25] MEDS: predniSONE 20 MG TABLET (UD) PO SCH (10:47)
[2023-05-25] MEDS: BUDESONIDE/FORMETEROL FUMARATE 160/4.5 mcg INHALER IH SCH ×2 (10:48→21:20)
[2023-05-25 12:51] LABS: BASO % 0.2 % (0-2.0); EOS % 0.3 % (0-4.5); HEMATOCRIT 40.8 % (35.4-49); HEMOGLOBIN 12.7 GM/dL (11.7-16.9); LYMPH % 31.5 % (8-40); MCH 29.7 pg (25.7-33.7); MCHC 31.2 g/dl (32.0-35.9); MEAN CELL VOLUME 95.1 fl (80-96); MEAN PLT VOLUME 8.6 fl (7.5-11.1); PLATELET COUNT 150 10^3/uL (134-434); RBC 4.29 M/mm3 (4.00-5.60); RDW 14.9 % (11.9-15.9)
[2023-05-25 13:43] LABS: POTASSIUM 4.3 mmol/L (3.5-5.1)
[2023-05-25 13:46] LABS: BLOOD UREA NITROGEN 17.2 mg/dL (7-18); MAGNESIUM 2.1 mg/dL (1.8-2.4)
[2023-05-25 13:49] LABS: CREATININE 0.7 mg/dL (0.55-1.3)
[2023-05-25 13:50] LABS: BILIRUBIN,TOTAL 0.4 mg/dL (0.2-1); TOT PROT 5.8 g/dl (6.4-8.2)
[2023-05-26] MEDS: ALBUTEROL SO4 2.5/IPRATROPIUM 0.5 INH SOL 3 ML VIAL.NEB. NEB SCH ×3 (07:48→19:03)
[2023-05-26 09:04] LABS: BASO % 0.2 % (0-2.0); EOS % 0.1 % (0-4.5); HEMOGLOBIN 13.2 GM/dL (11.7-16.9); LYMPH % 30.5 % (8-40); MCHC 31.4 g/dl (32.0-35.9); MEAN CELL VOLUME 95.7 fl (80-96); MONO % 7.6 % (3.8-10.2); NEUT % 61.6 % (42.8-82.8); PLATELET COUNT 158 10^3/uL (134-434); RBC 4.39 M/mm3 (4.00-5.60); RDW 15.2 % (11.9-15.9); WHITE BLOOD COUNT 5.8 K/mm3 (4.0-10.0)
[2023-05-26 09:30] LABS: POTASSIUM 4.9 mmol/L (3.5-5.1)
[2023-05-26 09:33] LABS: CALCIUM 9.4 mg/dL (8.5-10.1); MAGNESIUM 2.4 mg/dL (1.8-2.4)
[2023-05-26 09:34] LABS: ALBUMIN 3.2 g/dl (3.4-5.0)
[2023-05-26 09:36] LABS: CREATININE 0.9 mg/dL (0.55-1.3)
[2023-05-26 09:38] LABS: BILIRUBIN,TOTAL 0.5 mg/dL (0.2-1); TOT PROT 6.1 g/dl (6.4-8.2)
[2023-05-26] MEDS: predniSONE 20 MG TABLET (UD) PO SCH (10:40)
[2023-05-26] MEDS: amLODIPine BESYLATE 10 MG TABLET (FP) PO SCH (10:40)
[2023-05-26] MEDS: LOSARTAN POTASSIUM 50 MG TABLET PO SCH (10:40)
[2023-05-26] MEDS: PANTOPRAZOLE 40 MG TABLET PO SCH (10:40)
[2023-05-26] MEDS: ENOXAPARIN NA (PORCINE) 40 MG/0.4 ML DISP.SYRIN SQ SCH (10:40)
[2023-05-26] MEDS: BUDESONIDE/FORMETEROL FUMARATE 160/4.5 mcg INHALER IH SCH ×2 (10:49→22:26)
[2023-05-27] MEDS: ALBUTEROL SO4 2.5/IPRATROPIUM 0.5 INH SOL 3 ML VIAL.NEB. NEB SCH ×3 (08:20→20:14)
[2023-05-27] MEDS: predniSONE 20 MG TABLET (UD) PO SCH (10:08)
[2023-05-27] MEDS: amLODIPine BESYLATE 10 MG TABLET (FP) PO SCH (10:08)
[2023-05-27] MEDS: PANTOPRAZOLE 40 MG TABLET PO SCH (10:08)
[2023-05-27] MEDS: LOSARTAN POTASSIUM 50 MG TABLET PO SCH (10:08)
[2023-05-27 10:25] LABS: BASO % 0.2 % (0-2.0); EOS % 0.2 % (0-4.5); HEMATOCRIT 40.9 % (35.4-49); HEMOGLOBIN 12.9 GM/dL (11.7-16.9); LYMPH % 34.9 % (8-40); MCHC 31.6 g/dl (32.0-35.9); MEAN CELL VOLUME 95.1 fl (80-96); MEAN PLT VOLUME 8.5 fl (7.5-11.1); MONO % 7.9 % (3.8-10.2); NEUT % 56.8 % (42.8-82.8); PLATELET COUNT 159 10^3/uL (134-434); WHITE BLOOD COUNT 5.4 K/mm3 (4.0-10.0)
[2023-05-27] MEDS: ENOXAPARIN NA (PORCINE) 40 MG/0.4 ML DISP.SYRIN SQ SCH (10:30)
[2023-05-27 11:04] LABS: POTASSIUM 3.9 mmol/L (3.5-5.1)
[2023-05-27 11:09] LABS: BLOOD UREA NITROGEN 16.7 mg/dL (7-18)
[2023-05-27 11:10] LABS: ALBUMIN 3.2 g/dl (3.4-5.0); CALCIUM 9.2 mg/dL (8.5-10.1); MAGNESIUM 2.2 mg/dL (1.8-2.4)
[2023-05-27 11:13] LABS: CREATININE 0.8 mg/dL (0.55-1.3)
[2023-05-27 11:14] LABS: BILIRUBIN,TOTAL 0.4 mg/dL (0.2-1)
[2023-05-27] MEDS: BUDESONIDE/FORMETEROL FUMARATE 160/4.5 mcg INHALER IH SCH ×2 (11:28→22:08)
[2023-05-28] MEDS: ALBUTEROL SO4 2.5/IPRATROPIUM 0.5 INH SOL 3 ML VIAL.NEB. NEB SCH ×3 (07:35→19:31)
[2023-05-28] MEDS: predniSONE 20 MG TABLET (UD) PO SCH (09:50)
[2023-05-28] MEDS: LOSARTAN POTASSIUM 50 MG TABLET PO SCH (09:50)
[2023-05-28] MEDS: PANTOPRAZOLE 40 MG TABLET PO SCH (09:50)
[2023-05-28] MEDS: amLODIPine BESYLATE 10 MG TABLET (FP) PO SCH (09:50)
[2023-05-28] MEDS: BUDESONIDE/FORMETEROL FUMARATE 160/4.5 mcg INHALER IH SCH ×2 (09:50→22:50)
[2023-05-28] MEDS: ENOXAPARIN NA (PORCINE) 40 MG/0.4 ML DISP.SYRIN SQ SCH (09:50)
[2023-05-29] MEDS: ALBUTEROL SO4 2.5/IPRATROPIUM 0.5 INH SOL 3 ML VIAL.NEB. NEB SCH ×3 (07:15→21:05)
[2023-05-29] MEDS: LOSARTAN POTASSIUM 50 MG TABLET PO SCH (09:56)
[2023-05-29] MEDS: amLODIPine BESYLATE 10 MG TABLET (FP) PO SCH (09:59)
[2023-05-29] MEDS: predniSONE 20 MG TABLET (UD) PO SCH (09:59)
[2023-05-29] MEDS: PANTOPRAZOLE 40 MG TABLET PO SCH (09:59)
[2023-05-29] MEDS: ENOXAPARIN NA (PORCINE) 40 MG/0.4 ML DISP.SYRIN SQ SCH (09:59)
[2023-05-29] MEDS: BUDESONIDE/FORMETEROL FUMARATE 160/4.5 mcg INHALER IH SCH ×2 (10:00→21:54)
[2023-05-29] MEDS ORDERED: methaDONE HCL 10 MG TABLET (FOR DETOX USE ONLY) PO SCH (10:15)
[2023-05-30] MEDS: ALBUTEROL SO4 2.5/IPRATROPIUM 0.5 INH SOL 3 ML VIAL.NEB. NEB SCH ×3 (08:41→20:56)
[2023-05-30] MEDS: amLODIPine BESYLATE 10 MG TABLET (FP) PO SCH (09:14)
[2023-05-30] MEDS: LOSARTAN POTASSIUM 50 MG TABLET PO SCH (09:14)
[2023-05-30] MEDS: ENOXAPARIN NA (PORCINE) 40 MG/0.4 ML DISP.SYRIN SQ SCH (09:14)
[2023-05-30] MEDS: predniSONE 20 MG TABLET (UD) PO SCH (09:14)
[2023-05-30] MEDS: PANTOPRAZOLE 40 MG TABLET PO SCH (09:14)
[2023-05-30] MEDS: BUDESONIDE/FORMETEROL FUMARATE 160/4.5 mcg INHALER IH SCH ×2 (09:15→23:17)
[2023-05-31] MEDS: ALBUTEROL SO4 2.5/IPRATROPIUM 0.5 INH SOL 3 ML VIAL.NEB. NEB SCH ×3 (08:40→20:20)
[2023-05-31] MEDS: ENOXAPARIN NA (PORCINE) 40 MG/0.4 ML DISP.SYRIN SQ SCH (09:26)
[2023-05-31] MEDS: LOSARTAN POTASSIUM 50 MG TABLET PO SCH (09:26)
[2023-05-31] MEDS: predniSONE 20 MG TABLET (UD) PO SCH (09:26)
[2023-05-31] MEDS: PANTOPRAZOLE 40 MG TABLET PO SCH (09:26)
[2023-05-31] MEDS: amLODIPine BESYLATE 10 MG TABLET (FP) PO SCH (09:27)
[2023-05-31] MEDS: BUDESONIDE/FORMETEROL FUMARATE 160/4.5 mcg INHALER IH SCH ×2 (09:31→22:33)
[2023-06-01] MEDS: ALBUTEROL SO4 2.5/IPRATROPIUM 0.5 INH SOL 3 ML VIAL.NEB. NEB SCH ×3 (08:40→19:53)
[2023-06-01] MEDS: amLODIPine BESYLATE 10 MG TABLET (FP) PO SCH (09:45)
[2023-06-01] MEDS: ENOXAPARIN NA (PORCINE) 40 MG/0.4 ML DISP.SYRIN SQ SCH (09:45)
[2023-06-01] MEDS: predniSONE 20 MG TABLET (UD) PO SCH (09:45)
[2023-06-01] MEDS: LOSARTAN POTASSIUM 50 MG TABLET PO SCH (09:45)
[2023-06-01] MEDS: PANTOPRAZOLE 40 MG TABLET PO SCH (09:45)
[2023-06-01] MEDS: BUDESONIDE/FORMETEROL FUMARATE 160/4.5 mcg INHALER IH SCH ×2 (09:53→22:37)
[2023-06-01] MEDS ORDERED: PANTOPRAZOLE 40 MG TABLET PO SCH (12:18)
[2023-06-02 06:21] VITALS: RESP 20
[2023-06-02] MEDS: ALBUTEROL SO4 2.5/IPRATROPIUM 0.5 INH SOL 3 ML VIAL.NEB. NEB SCH ×3 (08:40→19:32)
[2023-06-02] MEDS: predniSONE 20 MG TABLET (UD) PO SCH (09:31)
[2023-06-02] MEDS: ENOXAPARIN NA (PORCINE) 40 MG/0.4 ML DISP.SYRIN SQ SCH (09:32)
[2023-06-02] MEDS: PANTOPRAZOLE 40 MG TABLET PO SCH (09:32)
[2023-06-02] MEDS: amLODIPine BESYLATE 10 MG TABLET (FP) PO SCH (09:32)
[2023-06-02] MEDS: LOSARTAN POTASSIUM 50 MG TABLET PO SCH (09:32)
[2023-06-02] MEDS: BUDESONIDE/FORMETEROL FUMARATE 160/4.5 mcg INHALER IH SCH (09:33)
[2023-06-03] MEDS: BUDESONIDE/FORMETEROL FUMARATE 160/4.5 mcg INHALER IH SCH ×2 (00:02→09:27)
[2023-06-03] MEDS: ALBUTEROL SO4 2.5/IPRATROPIUM 0.5 INH SOL 3 ML VIAL.NEB. NEB SCH ×2 (07:42→13:56)
[2023-06-03] MEDS: predniSONE 20 MG TABLET (UD) PO SCH (09:23)
[2023-06-03] MEDS: amLODIPine BESYLATE 10 MG TABLET (FP) PO SCH (09:25)
[2023-06-03] MEDS: LOSARTAN POTASSIUM 50 MG TABLET PO SCH (09:25)
[2023-06-03] MEDS: ENOXAPARIN NA (PORCINE) 40 MG/0.4 ML DISP.SYRIN SQ SCH (09:25)
[2023-06-03] MEDS: PANTOPRAZOLE 40 MG TABLET PO SCH (09:26)
[2023-06-03 14:16] VITALS: BP 120/74; PULSE 105; TEMP 98.5
[2023-06-04] MEDS ORDERED: predniSONE 20 MG TABLET (UD) PO SCH (10:00)
[2023-06-06] MEDS ORDERED: predniSONE 10 MG TABLET (UD) PO SCH (10:00)
== END 2023-06-03 20:53 | DRG 917 ==
LOC: JER 16:02 → JERBED 16:54 → OBSVTOIN 18:27 → JERBED 21:42 → J4S 21:46 → J8W 05-21 16:47
PROVIDERS: ADMIT Internal Medicine; ATTEND Nurse Practitioner Acute Care
PROC: XW033E5 Introduction of Remdesivir Anti-infective into Peripheral Vein, Percutaneous Approach, New Technology Group 5 (ICD-10-PCS; principal; 2023-05-11)
DX: T40.1X1A Poisoning by heroin, accidental (unintentional), initial encounter (principal); J96.01 Acute respiratory failure with hypoxia; U07.1 COVID-19; J44.1 Chronic obstructive pulmonary disease with (acute) exacerbation; J45.901 Unspecified asthma with (acute) exacerbation; F11.20 Opioid dependence, uncomplicated; E46 Unspecified protein-calorie malnutrition; Y92.89 Other specified places as the place of occurrence of the external cause; J44.9 Chronic obstructive pulmonary disease, unspecified; E11.9 Type 2 diabetes mellitus without complications; Z59.00 Homelessness unspecified; Z99.81 Dependence on supplemental oxygen; Z68.20 Body mass index [BMI] 20.0-20.9, adult
CPT/HCPCS: 0241U-QW; 36415; 71045-TC-FY; 80048; 80053; 82803; 82962; 83036; 83735; 84100; 85025; 85027; 86140; 87635; 93005; 93010; 94010; 94640; 94761; 97116-GP; 97161-GP; 99285-25; C9399; G0378; J1644

== ENCOUNTER 2023-06-11 10:30 | Emergency (ER) | payer OTHER ==
[2023-06-11 10:44] VITALS: BP 149/95; PULSE 97; RESP 18; TEMP 98.8; BMI 18.6
== END 2023-06-11 13:22 | disposition left against medical advice (07) ==
LOC: JER 10:30
DX: R06.02 Shortness of breath (principal); Z02.2 Encounter for examination for admission to residential institution
CPT/HCPCS: 99282-25

== ENCOUNTER 2023-10-15 10:02 | Inpatient (IN) | payer OTHER ==
[2023-10-15] MEDS ORDERED: ASPIRIN 81 MG CHEWABLE TABLETS PO ONE (10:51)
[2023-10-15] MEDS ORDERED: ACETAMINOPHEN 325 MG TABLET (FP) PO ONE (10:52)
[2023-10-15] MEDS ORDERED: ACETAMINOPHEN 325 MG TABLET (FP) ONE (11:01)
[2023-10-15] MEDS ORDERED: ASPIRIN 81 MG CHEWABLE TABLETS ONE (11:01)
[2023-10-15 11:08] LABS: BASO % 0.5 % (0-2.0); HEMATOCRIT 39.3 % (35.4-49); HEMOGLOBIN 12.5 GM/dL (11.7-16.9); LYMPH % 21.6 % (8-40); MCH 28.9 pg (25.7-33.7); MCHC 31.9 g/dl (32.0-35.9); MEAN CELL VOLUME 90.6 fl (80-96); MEAN PLT VOLUME 7.3 fl (7.5-11.1); MONO % 6.7 % (3.8-10.2); NEUT % 67.2 % (42.8-82.8); PLATELET COUNT 186 10^3/uL (134-434); RBC 4.34 M/mm3 (4.00-5.60); RDW 14.6 % (11.9-15.9); WHITE BLOOD COUNT 3.7 K/mm3 (4.0-10.0)
[2023-10-15 11:14] LABS: INR 1.03 (0.83-1.09)
[2023-10-15 11:17] LABS: ACTIVATED PTT 29.6 SECONDS (25.2-36.5)
[2023-10-15 11:27] LABS: POTASSIUM 4.1 mmol/L (3.5-5.1)
[2023-10-15 11:29] LABS: CALCIUM 8.7 mg/dL (8.5-10.1)
[2023-10-15 11:30] LABS: ALBUMIN 3.7 g/dl (3.4-5.0); BLOOD UREA NITROGEN 12.2 mg/dL (7-18); MAGNESIUM 2.4 mg/dL (1.8-2.4)
[2023-10-15 11:33] LABS: CREATININE 0.8 mg/dL (0.55-1.3)
[2023-10-15 11:35] LABS: BILIRUBIN,TOTAL 0.7 mg/dL (0.2-1)
[2023-10-15 13:37] LABS: URINE APPEARANCE CLEAR; URINE BILIRUBIN NEGATIVE (NEGATIVE); URINE COLOR YELLOW; URINE GLUCOSE (UA) NEGATIVE (NEGATIVE); URINE KETONE NEGATIVE (NEGATIVE); URINE LEUK ESTERASE NEGATIVE (NEGATIVE); URINE NITRITE NEGATIVE (NEGATIVE); URINE PROTEIN TRACE (NEGATIVE)
[2023-10-15] MEDS ORDERED: DEXAMETHASONE SOD PHOSPHATE 20 MG/5 ML VIAL IVPB ONE (15:08)
[2023-10-15] MEDS ORDERED: IPRATROPIUM BR 0.02% 0.5 MG/2.5 ML VIAL.NEB. NEB ONE ×2 (15:33→16:43)
[2023-10-15] MEDS ORDERED: DEXAMETHASONE SOD PHOSPHATE 4 MG/1 ML VIAL ONE (15:33)
[2023-10-15] MEDS: IPRATROPIUM BR 0.02% 0.5 MG/2.5 ML VIAL.NEB. NEB PRN ×2 (15:56→16:45)
[2023-10-15] MEDS ORDERED: AZITHROMYCIN IVPB 500 MG/250 ML BAG IVPB ONE (18:32)
[2023-10-15] MEDS: AZITHROMYCIN IVPB 500 MG/250 ML BAG IVPB SCH (18:37)
[2023-10-15] MEDS ORDERED: ALBUTEROL SO4 2.5/IPRATROPIUM 0.5 INH SOL 3 ML VIAL.NEB. NEB ONE (19:07)
[2023-10-15] MEDS: ALBUTEROL SO4 2.5/IPRATROPIUM 0.5 INH SOL 3 ML VIAL.NEB. NEB SCH (19:47)
[2023-10-15] MEDS: BUDESONIDE/FORMETEROL FUMARATE 160/4.5 mcg INHALER IH SCH (22:31)
[2023-10-16] MEDS: ALBUTEROL SO4 2.5/IPRATROPIUM 0.5 INH SOL 3 ML VIAL.NEB. NEB SCH ×6 (00:10→20:35)
[2023-10-16 08:37] LABS: BASO % 0.3 % (0-2.0); EOS % 0.2 % (0-4.5); HEMOGLOBIN 11.1 GM/dL (11.7-16.9); LYMPH % 27.1 % (8-40); MCH 28.7 pg (25.7-33.7); MCHC 31.8 g/dl (32.0-35.9); MEAN CELL VOLUME 90.3 fl (80-96); MEAN PLT VOLUME 7.8 fl (7.5-11.1); NEUT % 61.4 % (42.8-82.8); PLATELET COUNT 167 10^3/uL (134-434); RBC 3.88 M/mm3 (4.00-5.60); RDW 14.8 % (11.9-15.9); WHITE BLOOD COUNT 2.4 K/mm3 (4.0-10.0)
[2023-10-16 08:57] LABS: POTASSIUM 4.3 mmol/L (3.5-5.1)
[2023-10-16 09:08] LABS: CHOLESTEROL 151 mg/dL (50-200)
[2023-10-16 09:09] LABS: CALCIUM 8.6 mg/dL (8.5-10.1); LDL CHOLESTEROL (ONLY SJRH) 66 mg/dL (5-100); MAGNESIUM 2.3 mg/dL (1.8-2.4)
[2023-10-16 09:10] LABS: ALBUMIN 3.2 g/dl (3.4-5.0); HDL CHOLESTEROL 75 mg/dL (40-60)
[2023-10-16 09:12] LABS: CREATININE 0.8 mg/dL (0.55-1.3); PHOSPHOROUS 3.7 mg/dL (2.5-4.9)
[2023-10-16] MEDS: ENOXAPARIN NA (PORCINE) 40 MG/0.4 ML DISP.SYRIN SQ SCH (09:12)
[2023-10-16] MEDS: LOSARTAN 50MG/HCTZ 12.5MG 1 TAB PO SCH (09:13)
[2023-10-16] MEDS: AZITHROMYCIN IVPB 500 MG/250 ML BAG IVPB SCH ×2 (09:13→09:21)
[2023-10-16] MEDS: predniSONE 20 MG TABLET (UD) PO SCH (09:13)
[2023-10-16] MEDS: amLODIPine BESYLATE 10 MG TABLET (FP) PO SCH (09:13)
[2023-10-16 09:14] LABS: BILIRUBIN,TOTAL 0.6 mg/dL (0.2-1); TOT PROT 6.1 g/dl (6.4-8.2)
[2023-10-16] MEDS: BUDESONIDE/FORMETEROL FUMARATE 160/4.5 mcg INHALER IH SCH ×2 (09:19→21:55)
[2023-10-16] MEDS ORDERED: methaDONE HCL 10 MG TABLET (FOR DETOX USE ONLY) PO ONE (10:00)
[2023-10-16] MEDS: TIOTROPIUM BROMIDE 2.5 MCG (SPIRIVA) RESPIMAT INHALER IH SCH (13:57)
[2023-10-17] MEDS: ALBUTEROL SO4 2.5/IPRATROPIUM 0.5 INH SOL 3 ML VIAL.NEB. NEB SCH ×7 (00:20→23:19)
[2023-10-17] MEDS: amLODIPine BESYLATE 10 MG TABLET (FP) PO SCH (10:20)
[2023-10-17] MEDS: predniSONE 20 MG TABLET (UD) PO SCH (10:20)
[2023-10-17] MEDS: ENOXAPARIN NA (PORCINE) 40 MG/0.4 ML DISP.SYRIN SQ SCH (10:20)
[2023-10-17] MEDS: BUDESONIDE/FORMETEROL FUMARATE 160/4.5 mcg INHALER IH SCH ×2 (10:20→22:41)
[2023-10-17] MEDS: LOSARTAN 50MG/HCTZ 12.5MG 1 TAB PO SCH (10:20)
[2023-10-17] MEDS: AZITHROMYCIN IVPB 500 MG/250 ML BAG IVPB SCH (10:20)
[2023-10-17] MEDS: TIOTROPIUM BROMIDE 2.5 MCG (SPIRIVA) RESPIMAT INHALER IH SCH (10:21)
[2023-10-17] MEDS ORDERED: methaDONE HCL 10 MG TABLET (FOR DETOX USE ONLY) PO SCH (10:30)
[2023-10-18] MEDS: ALBUTEROL SO4 2.5/IPRATROPIUM 0.5 INH SOL 3 ML VIAL.NEB. NEB SCH ×5 (04:25→20:03)
[2023-10-18 07:30] LABS: HEMATOCRIT 33.9 % (35.4-49); HEMOGLOBIN 11.1 GM/dL (11.7-16.9); MCH 29.4 pg (25.7-33.7); MCHC 32.8 g/dl (32.0-35.9); MEAN CELL VOLUME 89.7 fl (80-96); MEAN PLT VOLUME 7.7 fl (7.5-11.1); PLATELET COUNT 173 10^3/uL (134-434); RBC 3.78 M/mm3 (4.00-5.60); RDW 14.9 % (11.9-15.9); WHITE BLOOD COUNT 3.9 K/mm3 (4.0-10.0)
[2023-10-18 08:00] LABS: POTASSIUM 3.9 mmol/L (3.5-5.1)
[2023-10-18 08:02] LABS: CALCIUM 8.5 mg/dL (8.5-10.1)
[2023-10-18 08:03] LABS: BLOOD UREA NITROGEN 15.3 mg/dL (7-18); MAGNESIUM 2.3 mg/dL (1.8-2.4)
[2023-10-18 08:06] LABS: CREATININE 0.8 mg/dL (0.55-1.3); PHOSPHOROUS 3.5 mg/dL (2.5-4.9)
[2023-10-18] MEDS: ENOXAPARIN NA (PORCINE) 40 MG/0.4 ML DISP.SYRIN SQ SCH (10:19)
[2023-10-18] MEDS: LOSARTAN 50MG/HCTZ 12.5MG 1 TAB PO SCH (10:20)
[2023-10-18] MEDS: amLODIPine BESYLATE 10 MG TABLET (FP) PO SCH (10:20)
[2023-10-18] MEDS: predniSONE 20 MG TABLET (UD) PO SCH (10:20)
[2023-10-18] MEDS: TIOTROPIUM BROMIDE 2.5 MCG (SPIRIVA) RESPIMAT INHALER IH SCH (10:31)
[2023-10-18] MEDS: BUDESONIDE/FORMETEROL FUMARATE 160/4.5 mcg INHALER IH SCH ×2 (10:32→22:09)
[2023-10-18] MEDS ORDERED: DOCUSATE SODIUM 100 MG CAPSULE (FP) PO ONE (22:05)
[2023-10-18] MEDS: methylPREDNISolone NA SUCC 40 MG/1 ML VIAL IVPUSH SCH (22:09)
[2023-10-18 22:52] VITALS: BMI 16.2
[2023-10-19] MEDS: ALBUTEROL SO4 2.5/IPRATROPIUM 0.5 INH SOL 3 ML VIAL.NEB. NEB SCH ×7 (00:20→23:08)
[2023-10-19 07:44] LABS: BASO % 0.2 % (0-2.0); HEMATOCRIT 35.5 % (35.4-49); HEMOGLOBIN 11.4 GM/dL (11.7-16.9); LYMPH % 12.8 % (8-40); MCHC 32.1 g/dl (32.0-35.9); MEAN CELL VOLUME 90.3 fl (80-96); MEAN PLT VOLUME 8.8 fl (7.5-11.1); MONO % 4.1 % (3.8-10.2); NEUT % 82.9 % (42.8-82.8); PLATELET COUNT 186 10^3/uL (134-434); RBC 3.93 M/mm3 (4.00-5.60); RDW 14.9 % (11.9-15.9); WHITE BLOOD COUNT 3.8 K/mm3 (4.0-10.0)
[2023-10-19 08:00] LABS: POTASSIUM 4.5 mmol/L (3.5-5.1)
[2023-10-19 08:04] LABS: CALCIUM 8.5 mg/dL (8.5-10.1)
[2023-10-19 08:05] LABS: ALBUMIN 3.2 g/dl (3.4-5.0); MAGNESIUM 2.2 mg/dL (1.8-2.4)
[2023-10-19 08:08] LABS: CREATININE 0.7 mg/dL (0.55-1.3); PHOSPHOROUS 3.8 mg/dL (2.5-4.9)
[2023-10-19 08:09] LABS: BILIRUBIN,TOTAL 0.5 mg/dL (0.2-1); TOT PROT 6.1 g/dl (6.4-8.2)
[2023-10-19] MEDS: ENOXAPARIN NA (PORCINE) 40 MG/0.4 ML DISP.SYRIN SQ SCH (09:16)
[2023-10-19] MEDS: amLODIPine BESYLATE 10 MG TABLET (FP) PO SCH (09:17)
[2023-10-19] MEDS: LOSARTAN 50MG/HCTZ 12.5MG 1 TAB PO SCH (09:17)
[2023-10-19] MEDS: TIOTROPIUM BROMIDE 2.5 MCG (SPIRIVA) RESPIMAT INHALER IH SCH (09:18)
[2023-10-19] MEDS: BUDESONIDE/FORMETEROL FUMARATE 160/4.5 mcg INHALER IH SCH ×3 (09:18→23:43)
[2023-10-19] MEDS: methylPREDNISolone NA SUCC 40 MG/1 ML VIAL IVPUSH SCH (09:34)
[2023-10-19] MEDS: ASPIRIN COATED 81 MG TABLET.EC PO SCH (19:44)
[2023-10-19] MEDS: ATORVASTATIN CA 40 MG TABLET (FP) PO SCH (23:14)
[2023-10-19] MEDS: DOCUSATE SODIUM 100 MG CAPSULE (FP) PO SCH (23:14)
[2023-10-20] MEDS: ALBUTEROL SO4 2.5/IPRATROPIUM 0.5 INH SOL 3 ML VIAL.NEB. NEB SCH ×2 (03:03→08:11)
[2023-10-20] MEDS ORDERED: methylPREDNISolone NA SUCC 40 MG/1 ML VIAL IVPUSH SCH (10:00)
[2023-10-20] MEDS: predniSONE 20 MG TABLET (UD) PO SCH (10:19)
[2023-10-20] MEDS: amLODIPine BESYLATE 10 MG TABLET (FP) PO SCH (10:19)
[2023-10-20] MEDS: ENOXAPARIN NA (PORCINE) 40 MG/0.4 ML DISP.SYRIN SQ SCH (10:20)
[2023-10-20] MEDS: LOSARTAN 50MG/HCTZ 12.5MG 1 TAB PO SCH (10:20)
[2023-10-20] MEDS: TIOTROPIUM BROMIDE 2.5 MCG (SPIRIVA) RESPIMAT INHALER IH SCH (10:20)
[2023-10-20] MEDS: ASPIRIN COATED 81 MG TABLET.EC PO SCH (10:20)
[2023-10-20] MEDS: BUDESONIDE/FORMETEROL FUMARATE 160/4.5 mcg INHALER IH SCH ×2 (10:21→21:38)
[2023-10-20] MEDS: ALBUTEROL SULFATE 0.021% (0.63 MG/3 ML) VIAL.NEB NEB SCH ×4 (11:13→19:42)
[2023-10-20] MEDS: DOCUSATE SODIUM 100 MG CAPSULE (FP) PO SCH (21:38)
[2023-10-20] MEDS: ATORVASTATIN CA 40 MG TABLET (FP) PO SCH (21:38)
[2023-10-21] MEDS: ALBUTEROL SULFATE 0.021% (0.63 MG/3 ML) VIAL.NEB NEB SCH ×4 (00:56→11:35)
[2023-10-21] MEDS: LOSARTAN 50MG/HCTZ 12.5MG 1 TAB PO SCH (10:10)
[2023-10-21] MEDS: ENOXAPARIN NA (PORCINE) 40 MG/0.4 ML DISP.SYRIN SQ SCH (10:10)
[2023-10-21] MEDS: amLODIPine BESYLATE 10 MG TABLET (FP) PO SCH (10:10)
[2023-10-21] MEDS: predniSONE 20 MG TABLET (UD) PO SCH (10:11)
[2023-10-21] MEDS: ASPIRIN COATED 81 MG TABLET.EC PO SCH (10:11)
[2023-10-21] MEDS: TIOTROPIUM BROMIDE 2.5 MCG (SPIRIVA) RESPIMAT INHALER IH SCH (10:12)
[2023-10-21] MEDS: BUDESONIDE/FORMETEROL FUMARATE 160/4.5 mcg INHALER IH SCH (10:12)
[2023-10-21 13:56] VITALS: RESP 20
[2023-10-21 14:56] VITALS: BP 141/76; PULSE 100; TEMP 97.9
[2023-10-23] MEDS ORDERED: predniSONE 10 MG TABLET (UD) PO SCH (10:00)
[2023-10-26] MEDS ORDERED: predniSONE 20 MG TABLET (UD) PO SCH (10:00)
[2023-10-29] MEDS ORDERED: predniSONE 10 MG TABLET (UD) PO SCH (10:00)
== END 2023-10-21 15:17 | disposition home or self-care (01) | DRG 190 ==
LOC: JER 10:02 → JERBED 12:44 → J4W 20:56 → OBSVTOIN 10-18 11:45 → J8W 10-19 21:09
PROVIDERS: ADMIT Internal Medicine; ATTEND Internal Medicine
DX: J44.1 Chronic obstructive pulmonary disease with (acute) exacerbation (principal); E43 Unspecified severe protein-calorie malnutrition; F11.20 Opioid dependence, uncomplicated; J96.11 Chronic respiratory failure with hypoxia; Z68.1 Body mass index [BMI] 19.9 or less, adult; I10 Essential (primary) hypertension; R07.89 Other chest pain; F17.210 Nicotine dependence, cigarettes, uncomplicated; R73.03 Prediabetes; R91.1 Solitary pulmonary nodule; Z99.81 Dependence on supplemental oxygen; R29.898 Other symptoms and signs involving the musculoskeletal system; I70.0 Atherosclerosis of aorta
CPT/HCPCS: 0241U-QW; 36415; 70450-TC; 70496-TC; 70498-TC; 70551-TC; 71045-TC-FY; 71250-TC; 80048; 80053; 80061; 81003; 82607; 82746; 82962; 83036; 83735; 83880; 84100; 84439; 84443; 84484; 85025; 85027; 85610; 85730; 87086; 93005; 93010; 94640; 94761; 97116-GP; 97162-GP; 99285-25; G0378

== ENCOUNTER 2024-02-11 23:35 | Inpatient (IN) | payer OTHER ==
[2024-02-12] MEDS ORDERED: ACETAMINOPHEN INJECTION 100 ML IVPB ONE (00:37)
[2024-02-12 00:41] LABS: BASO % 0.7 % (0-2.0); EOS % 5.4 % (0-4.5); HEMOGLOBIN 12.9 GM/dL (11.7-16.9); LYMPH % 15.8 % (8-40); MCH 29.5 pg (25.7-33.7); MCHC 32.9 g/dl (32.0-35.9); MEAN CELL VOLUME 89.7 fl (80-96); MONO % 8.6 % (3.8-10.2); NEUT % 69.5 % (42.8-82.8); PLATELET COUNT 274 10^3/uL (134-434); RBC 4.35 M/mm3 (4.00-5.60); RDW 14.4 % (11.9-15.9); WHITE BLOOD COUNT 4.7 K/mm3 (4.0-10.0)
[2024-02-12] MEDS: ACETAMINOPHEN 1000 MG/100 ML BAG IVPB ONE (00:43)
[2024-02-12] MEDS: ALBUTEROL SO4 2.5/IPRATROPIUM 0.5 INH SOL 3 ML VIAL.NEB. NEB SCH (00:43)
[2024-02-12 00:48] LABS: PROTHROMBIN TIME (PATIENT) 11.6 SEC (9.7-13.0)
[2024-02-12 00:50] LABS: ACTIVATED PTT 31.5 SECONDS (25.2-36.5)
[2024-02-12] MEDS ORDERED: TERBUTALINE SULFATE 1 MG/1 ML VIAL SQ ONE (00:54)
[2024-02-12] MEDS ORDERED: MAGNESIUM SULFATE IN WATER 2 GM/50 ML IVPB IVPB ONE (00:54)
[2024-02-12] MEDS: TERBUTALINE SULFATE 1 MG/1 ML VIAL SQ ONE (00:59)
[2024-02-12] MEDS: MAGNESIUM SULF 50% (8.12 MEQ/2 ML-1 GM VIAL) IVPB ONE (00:59)
[2024-02-12 01:03] LABS: POTASSIUM 4.1 mmol/L (3.5-5.1)
[2024-02-12 01:04] LABS: CALCIUM 9.3 mg/dL (8.5-10.1)
[2024-02-12 01:05] LABS: ALBUMIN 3.8 g/dl (3.4-5.0); BLOOD UREA NITROGEN 13.3 mg/dL (7-18)
[2024-02-12 01:08] LABS: CREATININE 0.9 mg/dL (0.55-1.3)
[2024-02-12 01:10] LABS: BILIRUBIN,TOTAL 0.4 mg/dL (0.2-1); TOT PROT 7.6 g/dl (6.4-8.2)
[2024-02-12] MEDS ORDERED: methaDONE HCL 40 MG DISPERSABLE TABLET ONE ×2 (06:38→06:50)
[2024-02-12] MEDS ORDERED: methaDONE HCL 10 MG TABLET ONE ×2 (06:38→06:50)
[2024-02-12] MEDS: methaDONE HCL 10 MG TABLET (FOR DETOX USE ONLY) PO ONE (06:47)
[2024-02-12] MEDS: FLUTICASONE/UMECLIDIN/VILANTER(200-62.5-25 TRELEGY ELLIPTA) INAHLER IH SCH (12:37)
[2024-02-12] MEDS ORDERED: HEPARIN NA (PORCINE) 5,000 UNITS/ML 1ML VIAL ONE (23:40)
[2024-02-12] MEDS ORDERED: ATORVASTATIN CA 20 MG TABLET (FP) ONE (23:40)
[2024-02-12] MEDS: ATORVASTATIN CA 40 MG TABLET (FP) PO SCH (23:47)
[2024-02-12] MEDS: HEPARIN NA (PORCINE) 5,000 UNITS/ML 1ML VIAL SQ SCH (23:47)
[2024-02-13 07:34] LABS: BASO % 1.2 % (0-2.0); EOS % 8.8 % (0-4.5); HEMATOCRIT 36.6 % (35.4-49); HEMOGLOBIN 11.9 GM/dL (11.7-16.9); LYMPH % 25.5 % (8-40); MCH 29.6 pg (25.7-33.7); MCHC 32.5 g/dl (32.0-35.9); MEAN PLT VOLUME 7.7 fl (7.5-11.1); MONO % 8.3 % (3.8-10.2); NEUT % 56.2 % (42.8-82.8); PLATELET COUNT 232 10^3/uL (134-434); RBC 4.02 M/mm3 (4.00-5.60); RDW 13.9 % (11.9-15.9); WHITE BLOOD COUNT 3.6 K/mm3 (4.0-10.0)
[2024-02-13 07:56] LABS: POTASSIUM 4.2 mmol/L (3.5-5.1)
[2024-02-13 08:02] LABS: ALBUMIN 3.1 g/dl (3.4-5.0); BLOOD UREA NITROGEN 9.7 mg/dL (7-18); CALCIUM 8.3 mg/dL (8.5-10.1)
[2024-02-13 08:04] LABS: CREATININE 0.8 mg/dL (0.55-1.3)
[2024-02-13 08:06] LABS: BILIRUBIN,TOTAL 0.5 mg/dL (0.2-1); TOT PROT 6.3 g/dl (6.4-8.2)
[2024-02-13] MEDS ORDERED: methaDONE HCL 40 MG DISPERSABLE TABLET ONE (09:35)
[2024-02-13] MEDS ORDERED: methaDONE HCL 10 MG TABLET ONE (09:36)
[2024-02-13] MEDS: POLYETHYLENE GLYCOL (HEALTHYLAX) 3350 17 GM PACKET PO SCH (09:56)
[2024-02-13] MEDS: ASPIRIN COATED 81 MG TABLET.EC PO SCH (09:56)
[2024-02-13] MEDS: LOSARTAN 50MG/HCTZ 12.5MG 1 TAB PO SCH (09:57)
[2024-02-13] MEDS: DOCUSATE SODIUM 100 MG CAPSULE (FP) PO SCH (09:57)
[2024-02-13] MEDS: amLODIPine BESYLATE 10 MG TABLET (FP) PO SCH (09:57)
[2024-02-13] MEDS: ALBUTEROL SO4 0.083% IH SOL 2.5 MG/3 ML VIAL.NEB. NEB PRN (09:58)
[2024-02-13] MEDS ORDERED: ALBUTEROL SO4 0.083% IH SOL 2.5 MG/3 ML VIAL.NEB. NEB ONE (10:11)
[2024-02-13] MEDS ORDERED: ALBUTEROL SO4 0.083% IH SOL 2.5 MG/3 ML VIAL.NEB. NEB PRN (13:39)
[2024-02-13] MEDS ORDERED: methylPREDNISolone NA SUCC 40 MG/1 ML VIAL ONE (14:44)
[2024-02-13] MEDS ORDERED: ALBUTEROL SO4 2.5/IPRATROPIUM 0.5 INH SOL 3 ML VIAL.NEB. NEB ONE (14:44)
[2024-02-13] MEDS: methylPREDNISolone NA SUCC 40 MG/1 ML VIAL IVPUSH SCH (14:56)
[2024-02-13] MEDS: ALBUTEROL SO4 2.5/IPRATROPIUM 0.5 INH SOL 3 ML VIAL.NEB. NEB SCH (16:04)
[2024-02-14] MEDS: methaDONE HCL 40 MG DISPERSABLE TABLET PO ONE (06:47)
[2024-02-14 07:37] LABS: POTASSIUM 4.6 mmol/L (3.5-5.1)
[2024-02-14 07:40] LABS: CALCIUM 8.8 mg/dL (8.5-10.1)
[2024-02-14 07:41] LABS: ALBUMIN 3.3 g/dl (3.4-5.0); HEMOGLOBIN 12.8 GM/dL (11.7-16.9); MCHC 33.7 g/dl (32.0-35.9); MEAN CELL VOLUME 88.8 fl (80-96); MEAN PLT VOLUME 7.6 fl (7.5-11.1); PLATELET COUNT 236 10^3/uL (134-434); RBC 4.28 M/mm3 (4.00-5.60); RDW 14.2 % (11.9-15.9)
[2024-02-14 07:44] LABS: CREATININE 0.8 mg/dL (0.55-1.3)
[2024-02-14 07:46] LABS: BILIRUBIN,TOTAL 0.5 mg/dL (0.2-1); PHOSPHOROUS 3.9 mg/dL (2.5-4.9); TOT PROT 6.7 g/dl (6.4-8.2)
[2024-02-14 10:04] LABS: ANISOCYTOSIS 0; HELMET CELLS 0; HOWELL-JOLLY BODIES 0; MACROCYTOSIS 0; OVALOCYTE 0; ROULEAU 0; SICKELED CELLS 0; TARGET CELLS 0; TEAR DROP CELLS 0; TOXIC GRANULATION 0
[2024-02-14 15:51] VITALS: BMI 15.1
[2024-02-15 07:44] LABS: HEMATOCRIT 34.6 % (35.4-49); HEMOGLOBIN 11.3 GM/dL (11.7-16.9); MCH 29.3 pg (25.7-33.7); MCHC 32.8 g/dl (32.0-35.9); MEAN CELL VOLUME 89.3 fl (80-96); MEAN PLT VOLUME 7.3 fl (7.5-11.1); PLATELET COUNT 213 10^3/uL (134-434); RBC 3.87 M/mm3 (4.00-5.60); RDW 13.8 % (11.9-15.9); WHITE BLOOD COUNT 6.1 K/mm3 (4.0-10.0)
[2024-02-15 08:01] LABS: POTASSIUM 4.3 mmol/L (3.5-5.1)
[2024-02-15 08:07] LABS: ALBUMIN 3.1 g/dl (3.4-5.0); BLOOD UREA NITROGEN 20.4 mg/dL (7-18); CALCIUM 8.5 mg/dL (8.5-10.1)
[2024-02-15 08:11] LABS: MAGNESIUM 2.1 mg/dL (1.8-2.4)
[2024-02-15 08:14] LABS: CREATININE 0.7 mg/dL (0.55-1.3); PHOSPHOROUS 3.3 mg/dL (2.5-4.9)
[2024-02-15 08:16] LABS: BILIRUBIN,TOTAL 0.3 mg/dL (0.2-1); TOT PROT 6.1 g/dl (6.4-8.2)
[2024-02-15 09:51] LABS: ANISOCYTOSIS 0; MACROCYTOSIS 0
[2024-02-15] MEDS: PANTOPRAZOLE 40 MG TABLET PO SCH (16:10)
[2024-02-16 07:41] LABS: HEMATOCRIT 35.2 % (35.4-49); HEMOGLOBIN 11.4 GM/dL (11.7-16.9); MCH 29.5 pg (25.7-33.7); MCHC 32.5 g/dl (32.0-35.9); MEAN CELL VOLUME 90.6 fl (80-96); MEAN PLT VOLUME 7.5 fl (7.5-11.1); PLATELET COUNT 210 10^3/uL (134-434); RBC 3.88 M/mm3 (4.00-5.60); RDW 13.9 % (11.9-15.9)
[2024-02-16 08:23] LABS: POTASSIUM 4.3 mmol/L (3.5-5.1)
[2024-02-16 08:30] LABS: CALCIUM 8.9 mg/dL (8.5-10.1)
[2024-02-16 08:31] LABS: BLOOD UREA NITROGEN 18.6 mg/dL (7-18); MAGNESIUM 2.4 mg/dL (1.8-2.4)
[2024-02-16 08:33] LABS: BILIRUBIN,TOTAL 0.4 mg/dL (0.2-1); CREATININE 0.7 mg/dL (0.55-1.3); TOT PROT 6.1 g/dl (6.4-8.2)
[2024-02-16 08:34] LABS: PHOSPHOROUS 2.9 mg/dL (2.5-4.9)
[2024-02-16 10:35] LABS: ANISOCYTOSIS 0; HELMET CELLS 0; HOWELL-JOLLY BODIES 0; MACROCYTOSIS 0; OVALOCYTE 0; ROULEAU 0; SICKELED CELLS 0; TARGET CELLS 0; TEAR DROP CELLS 0; TOXIC GRANULATION 0
[2024-02-16] MEDS ORDERED: methylPREDNISolone NA SUCC 40 MG/1 ML VIAL IVPUSH SCH (18:00)
[2024-02-16] MEDS: methylPREDNISolone NA SUCC 40 MG/1 ML VIAL IVPUSH SCH (21:48)
[2024-02-17 07:11] LABS: BASO % 0.1 % (0-2.0); HEMATOCRIT 34.8 % (35.4-49); HEMOGLOBIN 11.2 GM/dL (11.7-16.9); LYMPH % 7.8 % (8-40); MCH 29.3 pg (25.7-33.7); MCHC 32.2 g/dl (32.0-35.9); MEAN PLT VOLUME 7.6 fl (7.5-11.1); NEUT % 88.1 % (42.8-82.8); PLATELET COUNT 212 10^3/uL (134-434); RBC 3.83 M/mm3 (4.00-5.60); RDW 14.3 % (11.9-15.9)
[2024-02-17 07:29] LABS: POTASSIUM 4.2 mmol/L (3.5-5.1)
[2024-02-17 07:33] LABS: CALCIUM 8.6 mg/dL (8.5-10.1)
[2024-02-17 07:34] LABS: BLOOD UREA NITROGEN 18.8 mg/dL (7-18)
[2024-02-17 07:36] LABS: CREATININE 0.7 mg/dL (0.55-1.3)
[2024-02-17 07:38] LABS: BILIRUBIN,TOTAL 0.4 mg/dL (0.2-1); TOT PROT 5.8 g/dl (6.4-8.2)
[2024-02-17 14:11] LABS: ARTERIAL BLD GAS O2 SATURATION 93.1 % (95-98); ARTERIAL BLOOD GAS BASE EXCESS 4.6 mmol/L (-2-2); ARTERIAL BLOOD GAS PO2 66.6 mmHg (80-100); ARTERIAL BLOOD GAS pH 7.403 (7.350-7.450)
[2024-02-17] MEDS: IPRATROPIUM BR 0.02% 0.5 MG/2.5 ML VIAL.NEB. NEB SCH (16:35)
[2024-02-17] MEDS: LEVALBUTEROL HCL 0.63 MG/3 ML VIAL.NEB. IH SCH (16:35)
[2024-02-18 07:08] LABS: HEMATOCRIT 36.1 % (35.4-49); LYMPH % 8.7 % (8-40); MCH 29.9 pg (25.7-33.7); MCHC 33.3 g/dl (32.0-35.9); MEAN CELL VOLUME 89.8 fl (80-96); MEAN PLT VOLUME 7.4 fl (7.5-11.1); MONO % 4.7 % (3.8-10.2); NEUT % 86.6 % (42.8-82.8); PLATELET COUNT 224 10^3/uL (134-434); RBC 4.02 M/mm3 (4.00-5.60); RDW 14.6 % (11.9-15.9); WHITE BLOOD COUNT 7.7 K/mm3 (4.0-10.0)
[2024-02-18 07:23] LABS: POTASSIUM 4.3 mmol/L (3.5-5.1)
[2024-02-18 07:27] LABS: ALBUMIN 3.2 g/dl (3.4-5.0)
[2024-02-18 07:28] LABS: MAGNESIUM 2.3 mg/dL (1.8-2.4)
[2024-02-18 07:31] LABS: CREATININE 0.8 mg/dL (0.55-1.3); PHOSPHOROUS 3.5 mg/dL (2.5-4.9)
[2024-02-18 07:32] LABS: BILIRUBIN,TOTAL 0.6 mg/dL (0.2-1); TOT PROT 6.3 g/dl (6.4-8.2)
[2024-02-19 07:54] LABS: BASO % 0.1 % (0-2.0); EOS % 0.2 % (0-4.5); HEMATOCRIT 32.4 % (35.4-49); HEMOGLOBIN 10.8 GM/dL (11.7-16.9); LYMPH % 19.9 % (8-40); MCH 29.8 pg (25.7-33.7); MCHC 33.2 g/dl (32.0-35.9); MEAN CELL VOLUME 89.6 fl (80-96); MONO % 9.2 % (3.8-10.2); NEUT % 70.6 % (42.8-82.8); PLATELET COUNT 194 10^3/uL (134-434); RBC 3.62 M/mm3 (4.00-5.60); RDW 14.3 % (11.9-15.9); WHITE BLOOD COUNT 8.1 K/mm3 (4.0-10.0)
[2024-02-19 08:00] LABS: POTASSIUM 3.9 mmol/L (3.5-5.1)
[2024-02-19 08:07] LABS: ALBUMIN 2.8 g/dl (3.4-5.0); BLOOD UREA NITROGEN 21.8 mg/dL (7-18); CALCIUM 8.6 mg/dL (8.5-10.1)
[2024-02-19 08:09] LABS: CREATININE 0.7 mg/dL (0.55-1.3)
[2024-02-19 08:10] LABS: TOT PROT 5.5 g/dl (6.4-8.2)
[2024-02-19 08:11] LABS: BILIRUBIN,TOTAL 0.3 mg/dL (0.2-1)
[2024-02-19] MEDS: predniSONE 20 MG TABLET (UD) PO SCH (09:28)
[2024-02-19] MEDS: LEVALBUTEROL HCL 0.63 MG/3 ML VIAL.NEB. IH SCH (14:47)
[2024-02-19] MEDS: MELATONIN 5 MG TABLETS PO PRN (22:46)
[2024-02-20 07:58] LABS: BASO % 0.1 % (0-2.0); EOS % 3.7 % (0-4.5); HEMATOCRIT 33.5 % (35.4-49); HEMOGLOBIN 10.8 GM/dL (11.7-16.9); LYMPH % 21.8 % (8-40); MCH 29.4 pg (25.7-33.7); MCHC 32.3 g/dl (32.0-35.9); MEAN CELL VOLUME 90.9 fl (80-96); MEAN PLT VOLUME 7.8 fl (7.5-11.1); MONO % 8.9 % (3.8-10.2); NEUT % 65.5 % (42.8-82.8); PLATELET COUNT 205 10^3/uL (134-434); RBC 3.69 M/mm3 (4.00-5.60); RDW 14.3 % (11.9-15.9); WHITE BLOOD COUNT 8.9 K/mm3 (4.0-10.0)
[2024-02-21] MEDS: methylPREDNISolone NA SUCC 40 MG/1 ML VIAL IVPUSH ONE (17:07)
[2024-02-21] MEDS: FAMOTIDINE 20 MG TABLET PO ONE (23:45)
[2024-02-21] MEDS: MAG HYDROX/AL HYDROX/SIMETH 30 ML UNIT-DOSE CUP PO ONE (23:45)
[2024-02-22 10:54] VITALS: BP 130/71; PULSE 88; RESP 20; TEMP 98
== END 2024-02-22 11:20 | disposition home or self-care (01) | DRG 190 ==
LOC: JER 23:35 → JERBED 02-12 09:24 → J4S 02-13 15:52 → OBSVTOIN 02-14 11:19
PROVIDERS: ADMIT Internal Medicine; ATTEND Internal Medicine
DX: J44.1 Chronic obstructive pulmonary disease with (acute) exacerbation (principal); E43 Unspecified severe protein-calorie malnutrition; J96.22 Acute and chronic respiratory failure with hypercapnia; J96.21 Acute and chronic respiratory failure with hypoxia; F11.20 Opioid dependence, uncomplicated; R64 Cachexia; Z68.1 Body mass index [BMI] 19.9 or less, adult; I10 Essential (primary) hypertension; Z99.81 Dependence on supplemental oxygen; R13.10 Dysphagia, unspecified; R00.0 Tachycardia, unspecified; K22.4 Dyskinesia of esophagus
CPT/HCPCS: 0241U-QW; 36415; 36600; 71045-TC-FY; 74177-TC; 74220-TC-FY; 74240-TC-FY; 80053; 82550; 82803; 83735; 84100; 84484; 85025; 85610; 85730; 86850; 86900; 86901; 93005; 93010; 93306-TC; 94640; 97116-GP; 97161-GP; 99285-25; G0378; J0131; J1644; Q9967

== ENCOUNTER 2024-06-19 09:52 | Inpatient (IN) | payer OTHER ==
[2024-06-19 11:16] LABS: HEMATOCRIT 36.2 % (35.4-49); HEMOGLOBIN 12.1 GM/dL (11.7-16.9); MCH 29.4 pg (25.7-33.7); MCHC 33.4 g/dl (32.0-35.9); MEAN CELL VOLUME 88.1 fl (80-96); PLATELET COUNT 239 10^3/uL (134-434); RBC 4.11 M/mm3 (4.00-5.60); RDW 14.4 % (11.9-15.9); WHITE BLOOD COUNT 8.7 K/mm3 (4.0-10.0)
[2024-06-19] MEDS ORDERED: ACETAMINOPHEN INJECTION 100 ML IVPB ONE (11:19)
[2024-06-19] MEDS: ACETAMINOPHEN 1000 MG/100 ML BAG IVPB ONE (11:21)
[2024-06-19 11:26] LABS: INR 1.15 (0.83-1.09); PROTHROMBIN TIME (PATIENT) 12.9 SEC (9.7-13.0)
[2024-06-19 11:28] LABS: ACTIVATED PTT 32.7 SECONDS (25.2-36.5)
[2024-06-19 11:36] LABS: POTASSIUM 4.3 mmol/L (3.5-5.1)
[2024-06-19 11:37] LABS: CALCIUM 8.4 mg/dL (8.5-10.1)
[2024-06-19 11:38] LABS: BLOOD UREA NITROGEN 10.9 mg/dL (7-18)
[2024-06-19 11:41] LABS: CREATININE 0.8 mg/dL (0.55-1.3)
[2024-06-19 11:42] LABS: BILIRUBIN,TOTAL 1.1 mg/dL (0.2-1)
[2024-06-19 11:43] LABS: TOT PROT 6.6 g/dl (6.4-8.2)
[2024-06-19 11:49] LABS: ANISOCYTOSIS 0; MACROCYTOSIS 0
[2024-06-19] MEDS ORDERED: AZITHROMYCIN IVPB 500 MG/250 ML BAG IVPB ONE (15:38)
[2024-06-19] MEDS ORDERED: CEFTRIAXONE 1 GM/50 ML BAG ONE (15:38)
[2024-06-19] MEDS: AZITHROMYCIN IVPB 500 MG in DEXTROSE 5%-WATER - 250 ML IVPB ONE (16:18)
[2024-06-19] MEDS ORDERED: HEPARIN NA (PORCINE) 5,000 UNITS/ML 1ML VIAL ONE (22:01)
[2024-06-19] MEDS: HEPARIN NA (PORCINE) 5,000 UNITS/ML 1ML VIAL SQ SCH (22:05)
[2024-06-20] MEDS: ALBUTEROL SO4 2.5/IPRATROPIUM 0.5 INH SOL 3 ML VIAL.NEB. NEB PRN (03:40)
[2024-06-20 09:09] LABS: HEMOGLOBIN 12.1 GM/dL (11.7-16.9); MCH 29.5 pg (25.7-33.7); MCHC 33.5 g/dl (32.0-35.9); MEAN CELL VOLUME 88.1 fl (80-96); PLATELET COUNT 238 10^3/uL (134-434); RBC 4.09 M/mm3 (4.00-5.60); RDW 14.4 % (11.9-15.9); WHITE BLOOD COUNT 8.4 K/mm3 (4.0-10.0)
[2024-06-20 09:10] LABS: POTASSIUM 4.6 mmol/L (3.5-5.1)
[2024-06-20 09:39] LABS: BLOOD UREA NITROGEN 14.3 mg/dL (7-18); CALCIUM 8.4 mg/dL (8.5-10.1)
[2024-06-20 09:42] LABS: CREATININE 0.7 mg/dL (0.55-1.3)
[2024-06-20] MEDS: CEFTRIAXONE 1 GM in DEXTROSE 5%-WATER - 50 ML IVPB SCH (09:57)
[2024-06-20] MEDS: AZITHROMYCIN IVPB 500 MG/250 ML BAG IVPB SCH (09:57)
[2024-06-20 10:52] LABS: ANISOCYTOSIS 0; HELMET CELLS 0; HOWELL-JOLLY BODIES 0; MACROCYTOSIS 0; OVALOCYTE 0; ROULEAU 0; SICKELED CELLS 0; TARGET CELLS 0; TEAR DROP CELLS 0; TOXIC GRANULATION 0
[2024-06-20] MEDS: methylPREDNISolone NA SUCC 40 MG/1 ML VIAL IVPUSH SCH (10:57)
[2024-06-20] MEDS: ALBUTEROL SO4 2.5/IPRATROPIUM 0.5 INH SOL 3 ML VIAL.NEB. NEB SCH (13:35)
[2024-06-20] MEDS: ACETAMINOPHEN 500 MG TABLET (FP) PO PRN (23:11)
[2024-06-21] MEDS: methaDONE 40 MG, methaDONE 10 MG PO SCH (05:37)
[2024-06-21] MEDS ORDERED: methaDONE HCL 10 MG TABLET PO SCH ×2 (06:00)
[2024-06-21] MEDS: MULTIVITAMINS (DAILY MVI) TABLET (FP) PO SCH (09:52)
[2024-06-21 09:57] LABS: BASO % 0.4 % (0-2.0); EOS % 37.2 % (0-4.5); HEMATOCRIT 34.9 % (35.4-49); HEMOGLOBIN 11.4 GM/dL (11.7-16.9); LYMPH % 18.8 % (8-40); MCH 29.4 pg (25.7-33.7); MCHC 32.6 g/dl (32.0-35.9); MEAN CELL VOLUME 90.1 fl (80-96); MONO % 6.6 % (3.8-10.2); PLATELET COUNT 245 10^3/uL (134-434); RBC 3.87 M/mm3 (4.00-5.60); RDW 14.3 % (11.9-15.9)
[2024-06-21 10:17] LABS: POTASSIUM 4.6 mmol/L (3.5-5.1)
[2024-06-21 10:35] LABS: CALCIUM 9.5 mg/dL (8.5-10.1)
[2024-06-21 10:36] LABS: ALBUMIN 2.9 g/dl (3.4-5.0); MAGNESIUM 2.6 mg/dL (1.8-2.4)
[2024-06-21 10:38] LABS: BLOOD UREA NITROGEN 18.2 mg/dL (7-18)
[2024-06-21 10:39] LABS: CREATININE 0.8 mg/dL (0.55-1.3)
[2024-06-21 10:40] LABS: BILIRUBIN,TOTAL 0.3 mg/dL (0.2-1)
[2024-06-21 10:41] LABS: TOT PROT 6.5 g/dl (6.4-8.2)
[2024-06-21 11:05] LABS: ANISOCYTOSIS 0; HELMET CELLS 0; HOWELL-JOLLY BODIES 0; MACROCYTOSIS 0; OVALOCYTE 0; ROULEAU 0; SICKELED CELLS 0; TARGET CELLS 0; TEAR DROP CELLS 0; TOXIC GRANULATION 0
[2024-06-21] MEDS: LIDOCAINE 5% TOPICAL PATCH TP SCH (11:41)
[2024-06-21 14:27] VITALS: BMI 15.5
[2024-06-21] MEDS: SODIUM CHLORIDE 1,000 ML IV SCH (15:55)
[2024-06-21] MEDS: methylPREDNISolone NA SUCC 40 MG/1 ML VIAL IVPUSH SCH (21:33)
[2024-06-21] MEDS: LIDOCAINE PATCH REMOVAL MC SCH (21:39)
[2024-06-22] MEDS: methaDONE 40 MG, methaDONE 10 MG PO SCH (05:42)
[2024-06-22 10:10] LABS: BASO % 0.3 % (0-2.0); EOS % 1.6 % (0-4.5); HEMATOCRIT 34.4 % (35.4-49); HEMOGLOBIN 11.1 GM/dL (11.7-16.9); LYMPH % 16.7 % (8-40); MCH 28.9 pg (25.7-33.7); MCHC 32.5 g/dl (32.0-35.9); MEAN CELL VOLUME 88.9 fl (80-96); MEAN PLT VOLUME 7.8 fl (7.5-11.1); MONO % 5.7 % (3.8-10.2); NEUT % 75.7 % (42.8-82.8); PLATELET COUNT 247 10^3/uL (134-434); RBC 3.86 M/mm3 (4.00-5.60); RDW 14.8 % (11.9-15.9)
[2024-06-22 10:33] LABS: POTASSIUM 4.5 mmol/L (3.5-5.1)
[2024-06-22 10:39] LABS: ALBUMIN 2.9 g/dl (3.4-5.0); BLOOD UREA NITROGEN 14.6 mg/dL (7-18); MAGNESIUM 2.4 mg/dL (1.8-2.4)
[2024-06-22 10:41] LABS: CREATININE 0.7 mg/dL (0.55-1.3)
[2024-06-22 10:42] LABS: TOT PROT 6.7 g/dl (6.4-8.2)
[2024-06-22 10:43] LABS: BILIRUBIN,TOTAL 0.2 mg/dL (0.2-1)
[2024-06-22] MEDS: AMOX TR/POT CLAV 500MG/125MG TABLETS (FP) PO SCH (17:39)
[2024-06-22] MEDS: POLYETHYLENE GLYCOL (HEALTHYLAX) 3350 17 GM PACKET PO SCH (23:37)
[2024-06-22] MEDS: POLYETHYLENE GLYCOL (HEALTHYLAX) 3350 17 GM PACKET PO ONE (23:43)
[2024-06-23] MEDS: predniSONE 20 MG TABLET (UD) PO SCH (09:10)
[2024-06-23] MEDS: ALBUTEROL SO4 2.5/IPRATROPIUM 0.5 INH SOL 3 ML VIAL.NEB. NEB ONE (09:10)
[2024-06-23] MEDS: LOSARTAN 50MG/HCTZ 12.5MG 1 TAB PO SCH (09:11)
[2024-06-23] MEDS: amLODIPine BESYLATE 10 MG TABLET (FP) PO SCH (09:11)
[2024-06-23] MEDS ORDERED: FLUTICASONE/UMECLIDIN/VILANTER(200-62.5-25 TRELEGY ELLIPTA) INAHLER IH SCH (10:00)
[2024-06-23 10:11] VITALS: BP 111/68; PULSE 100; RESP 20; TEMP 98
== END 2024-06-23 12:26 | DRG 193 ==
LOC: JER 09:52 → JERBED 11:12 → J8W 06-20 03:04 → OBSVTOIN 06-21 11:12
PROVIDERS: ADMIT Internal Medicine; ATTEND Nurse Practitioner Family
DX: J18.9 Pneumonia, unspecified organism (principal); E43 Unspecified severe protein-calorie malnutrition; J96.11 Chronic respiratory failure with hypoxia; F11.20 Opioid dependence, uncomplicated; J44.1 Chronic obstructive pulmonary disease with (acute) exacerbation; Z68.1 Body mass index [BMI] 19.9 or less, adult; I10 Essential (primary) hypertension
CPT/HCPCS: 0241U-QW; 36415; 70450-TC; 71045-TC-FY; 71250-TC; 72125-TC; 80048; 80053; 83735; 84484; 85025; 85610; 85730; 87070; 87205; 87899; 93005; 93010; 94640; 97116-GP; 97161-GP; 99285-25; G0378; J0131; J1644